=== PATIENT | female | born 1935 | race Caucasian/White ===

== ENCOUNTER → 2016-10-13 | Outpatient (REF) | payer MEDICARE, OTHER ==
[~2016-10-13] MED LIST: /WARF25TA; ACET65TA; AMIT10TA2; AMLO25TA PO; ASPI81TA85 PO; BAYE325T12 PO; BONIVA; CALC600T7 PO; COUM1TAB; CRAN500C2 PO; DIOV320T PO; DIOV80TA; EXTR500C4 PO; FERROUS GLUCONATE; FURO40TA2 PO; HYDR-3719 PO; INDE80CA PO; KEFL500C7 PO; LEVO500T32 PO; LIDODERM PATCH; MECL-68 PO; MECL25TA2; METAMUCIL; MILKSUS; NATU400T PO; NORV5TAB; PRILOSEC; PROP80CA; REST0.05 OU; RESTASIS; SYNT25TA PO; THERGRAN; TRAM50TA2; ULTRTA; VICO5TAB; VITA10006 PO; VITA500055 PO; VITAMIN D50000 UNT; ZOCO40TA; ZOCO40TA PO; prilosec otc; systane OU
[2016-10-13 16:53] LABS: PERCENT SATURATION 24.7 % (13.2-37.4)
== END ==
LOC: M LAB REF 16:11
PROVIDERS: ATTEND Internal Medicine
DX: N18.4 Chronic kidney disease, stage 4 (severe) (principal); D63.1 Anemia in chronic kidney disease

== ENCOUNTER → 2016-11-27 | Outpatient (REF) | payer MEDICARE, OTHER | LOC: M LAB REF 12:58 | PROVIDERS: ATTEND Internal Medicine Nephrology | DX: N39.0 Urinary tract infection, site not specified (principal) ==

== ENCOUNTER → 2017-04-03 | Outpatient (REF) | payer MEDICARE ==
[~2017-04-03] MED LIST changes: +KEFL500C17 PO; -KEFL500C7 PO; +LEVO500T3 PO; -LEVO500T32 PO
== END ==
LOC: M LAB REF 17:14
PROVIDERS: ATTEND Internal Medicine Nephrology
DX: N39.0 Urinary tract infection, site not specified (principal)

== ENCOUNTER 2017-06-18 19:26 | Emergency (ER) | payer MEDICARE ==
[~2017-06-18] VITALS: Ht 157.5 cm; Wt 74.1 kg
[2017-06-18] MEDS ORDERED: SPIR25TA2 PO (19:47)
[2017-06-18] MEDS ORDERED: HYDR-3910 PO (19:47)
[2017-06-18] MEDS ORDERED: ROCA0.25 PO (19:47)
[2017-06-18] MEDS ORDERED: LASI40TA PO (19:47)
[2017-06-18] MEDS ORDERED: MORP15TA2 PO (19:47)
[2017-06-18] MEDS ORDERED: MORP20SO3 PO (19:47)
[2017-06-18] MEDS ORDERED: FISH5CAP PO (19:50)
[2017-06-19] MEDS ORDERED: PERCOCET 5MG/325MG TAB PO ONE (02:30)
--- NOTE | 2017-06-19 03:40 | REPUSA ---
CLINICAL HISTORY: Back pain. TECHNIQUE: Multiple axial CT images were obtained through the lumbar spine without IV contrast adeliai al. COMMENTS: Moderate osteopenia of the visualized bones. Straightening of the lumbar lordosis. Grade 1 anterolisthesis of L4 on L5 measuring 2.4 mm. Moderate chronic compression fracture of L1 vertebral body. The maximum loss of height is estimated at 38%. Mild associated retropulsion. Secondary mild impingement on the corresponding aspect of the thecal sac and subsequent mild narrowin g of the adjacent aspect of the spinal canal. Moderate changes of Baastrup's disease. There are diffuse spondylotic changes. Findings are demonstrated by disc space narrowing, osteophyte formation and degenerative endplate changes. Facet joint arthropathy. No other fracture or dislocatio n is seen. No aggressive bone lesion is noted. Moderate multilevel degenerative disc disease. Multilevel spinal canal stenosis more prominent at L3-L4 and L4-L5 levels. Moderate multilevel degenerative disc disease. IMPRESSION: Spondylosis. No acute pathology. Thank you for your kind referral of this patient.
[2017-06-19] MEDS ORDERED: PERC5TAB12 PO (04:07)
[2017-06-19] MEDS ORDERED: PRED20TA PO (04:07)
[2017-06-19 04:09] VITALS: BP 145/56
[2017-06-19] MEDS ORDERED: predniSONE 20 MG TAB PO ONE (04:15)
[2017-06-19] MEDS ORDERED: OXYCODONE/APAP 5MG/325MG(BULK FOR ED) 1 TABLET PO ONE (04:15)
--- NOTE | 2017-06-19 08:13 | REP ---
Clinical: Pain. Technique: AP and lateral views of the left knee. Findings: The patient is status post arthroplasty with normal appearance and positioning to the femoral and tibial components. No dislocation. No periosteal reaction or significant heterotopic changes. No obvious effusion. Impression: No obvious acute abnormality by radiographic evaluation. Signed by Felipe Valdez MD 06/19/2017 08:05 A
--- NOTE | 2017-06-19 08:19 | REP ---
Clinical: Left hip pain. Technique: Frontal view of the pelvis with neutral and frog lateral views of the left hip. Findings: Enthesopathy and moderate degenerative changes to the pelvis and bilateral hips noted and relatively symmetric. Changes to the hip including increase sclerosis to the acetabular roof with primarily medial joint space. No obvious acute fracture. Sharply demarcated linear lucencies overlying the left pubic symphysis which are somewhat similar to 2015 and may represent irregular gas within the rectum, but subtle fracture cannot be excluded. Clinical correlation is recommended. Impression: 1. Pelvis and hips demonstrate enthesopathy and moderate symmetric degenerative changes without evidence for acute left hip fracture or dislocation. 2. Sharply demarcated lucencies overlie the left pubis symphysis and fracture cannot be excluded. Correlation is required. Signed by Felipe Valdez MD 06/19/2017 08:11 A
--- NOTE | 2017-06-22 06:54 | ED PDOC ---
Post-Departure Follow-Up dr peck faxed formal report of left hip and pelvis xray for fu. reviewing chart. pt relayed info. see chart. Frankie Fried MD Jun 22, 2017 06:54
== END 2017-06-19 04:59 | disposition home or self-care (01) ==
LOC: M ED 19:26
DX: M54.5 Low back pain (principal); M25.552 Pain in left hip

== ENCOUNTER → 2017-06-29 | Outpatient (CLI) | payer MEDICARE ==
[~2017-06-29] MED LIST changes: +FISH5CAP PO; +HYDR-3910 PO; +LASI40TA PO; +MORP15TA2 PO; +MORP20SO3 PO; +PERC5TAB12 PO; +PRED20TA PO; +ROCA0.25 PO; +SPIR25TA2 PO
--- NOTE | 2017-06-29 19:33 | REP ---
HISTORY: Hip pain. COMPARISON: There is degenerative asymmetric hip joint space narrowing with marginal osteophyte formation seen involving the acetabulum, status quo. There is no evidence of an acute fracture or dislocation. There is no CT evidence of a joint effusion. There is a chronic ill-defined inferior medial acetabular defect which is unchanged. IMPRESSION: Stable appearing chronic changes without evidence of an acute fracture or dislocation. If possible obtain MRI to search for marrow edema if clinically relevant. Signed by Lalo Nye DO 06/29/2017 07:41 P
== END ==
LOC: M RAD 18:13
PROVIDERS: ATTEND Orthopaedic Surgery
DX: M16.12 Unilateral primary osteoarthritis, left hip (principal)

== ENCOUNTER 2017-09-12 13:58 | Emergency (ER) | payer MEDICARE ==
[2017-09-12] MEDS: PERCOCET 5MG/325MG TAB PO (16:40)
== END 2017-09-12 16:54 | disposition home or self-care (01) ==
LOC: M ED 13:58
DX: I83.10 Varicose veins of unspecified lower extremity with inflammation (principal); M79.605 Pain in left leg; Z79.82 Long term (current) use of aspirin; Z79.899 Other long term (current) drug therapy; Z88.8 Allergy status to other drugs, medicaments and biological substances; Z88.5 Allergy status to narcotic agent
CPT/HCPCS: 93971

== ENCOUNTER → 2017-11-20 | Outpatient (REF) | payer MEDICARE | LOC: M LAB REF 17:51 | DX: N39.0 Urinary tract infection, site not specified (principal) | CPT/HCPCS: 87186 ==

== ENCOUNTER → 2018-04-25 | Outpatient (CLI) | payer MEDICARE ==
[2018-04-25 20:55] LABS: BASO # 0.1 10^3/uL (0.0-0.2); BASO % 0.5 % (0.0-1.0); EOS # 0.2 10^3/uL (0.0-0.50); HEMATOCRIT 35.6 % (36.0-47.0); HEMOGLOBIN 10.9 g/dl (12.0-15.5); IMMATURE GRANULOCYTE % 0.5 % (0-3.0); LYMPH # 1.8 10^3/uL (1.5-4.5); LYMPH % 19.9 % (24.0-44.0); MEAN CORPUSCULAR HEMOGLOBIN 30.6 pg (27.0-33.0); MEAN CORPUSCULAR HGB CONC 30.6 g/dl (32.0-36.5); MONO % 10.3 % (0.0-5.0); NEUTROPHILS # 6.2 10^3/uL (1.8-7.7); NEUTROPHILS % 66.8 % (36.0-66.0); PLATELET COUNT, AUTOMATED 268 10^3/uL (150-450); RED BLOOD COUNT 3.56 10^6/uL (4.00-5.40); RED CELL DISTRIBUTION WIDTH 12.7 % (11.5-14.5); WHITE BLOOD COUNT 9.2 10^3/uL (4.0-10.0)
[2018-04-25 21:23] LABS: ALBUMIN 3.8 GM/DL (3.2-5.2); ALBUMIN/GLOBULIN RATIO 1.19 (1.00-1.93); ALKALINE PHOSPHATASE 65 U/L (45-117); ALT/SGPT 22 U/L (12-78); AMYLASE 52 U/L (25-115); ANION GAP 11 MEQ/L (8-16); AST/SGOT 11 U/L (7-37); BILIRUBIN,TOTAL 0.6 MG/DL (0.2-1.0); BLOOD UREA NITROGEN 67 MG/DL (7-18); CALCIUM LEVEL 9.7 MG/DL (8.8-10.2); CARBON DIOXIDE LEVEL 29 MEQ/L (21-32); CHLORIDE LEVEL 103 MEQ/L (98-107); CREATININE FOR GFR 2.41 MG/DL (0.55-1.30); GLOMERULAR FILTRATION RATE 20.4 (>32); GLUCOSE, FASTING 105 MG/DL (70-100); LIPASE 94 U/L (73-393); POTASSIUM SERUM 4.7 MEQ/L (3.5-5.1); SODIUM LEVEL 143 MEQ/L (136-145)
[2018-04-26 11:17] LABS: CONTROL LINE HPYORI INT CTR LINE PRESENT; H PYLORI QUALITATIVE IgG NEGATIVE (NEGATIVE)
== END ==
LOC: M WUC 16:10
DX: R63.4 Abnormal weight loss (principal); R53.1 Weakness
CPT/HCPCS: 82150

== ENCOUNTER → 2018-09-20 | Outpatient (CLI) | payer MEDICARE ==
[~2018-09-20] MED LIST changes: +ASPI1TAB15 PO; -INDE80CA PO; +INDE80CA9 PO; -LASI40TA PO; +LASI40TA9 PO; +PERC10TA26 PO; +SPIR-10 PO; -SPIR25TA2 PO
--- NOTE | 2018-09-20 10:04 | REP ---
Clinical: Pain. Technique: AP, lateral, bilateral oblique views of the right ankle. Findings: Marked diffuse soft tissue swelling is appreciated. Underlying age-related changes are suggested without evidence for acute fracture. Ankle mortise appears intact. Impression: Marked diffuse swelling. No obvious acute fracture or dislocation. Electronically Signed by Felipe Valdez MD 09/20/2018 09:55 A
== END ==
LOC: M WUC 09:23
PROVIDERS: ATTEND Physician Assistant
DX: M25.471 Effusion, right ankle (principal); M25.571 Pain in right ankle and joints of right foot

== ENCOUNTER → 2018-10-18 | Outpatient (CLI) | payer MEDICARE ==
--- NOTE | 2018-10-18 15:58 | REP ---
LEFT SHOULDER, THREE VIEWS: Three views of the left shoulder are performed. There is no acute fracture or dislocation. No intrinsic osseous lesion is seen. There is mild spurring at the acromioclavicular joint and glenohumeral joint. IMPRESSION: Mild degenerative changes. Electronically Signed by Roland Mcdonald MD 10/18/2018 04:03 P
--- NOTE | 2018-10-18 16:04 | REP ---
HUMERUS, TWO VIEWS: Two views of the left humerus performed. There is no evidence of acute fracture, dislocation or intrinsic bone disease. There is mild spurring at the margins of the acromioclavicular and glenohumeral joints. IMPRESSION: No abnormality left humerus. Electronically Signed by Roland Mcdonald MD 10/18/2018 04:26 P
== END ==
LOC: M WUC 14:55
PROVIDERS: ATTEND Physician Assistant
DX: M25.512 Pain in left shoulder (principal); R32 Unspecified urinary incontinence; N39.0 Urinary tract infection, site not specified

== ENCOUNTER → 2018-10-18 | Outpatient (REF) | payer MEDICARE | LOC: M LAB REF 15:34 | PROVIDERS: ATTEND Internal Medicine Nephrology | DX: N39.0 Urinary tract infection, site not specified (principal) ==

== ENCOUNTER → 2018-10-18 | Outpatient (CLI) | payer MEDICARE ==
--- NOTE | 2018-10-18 14:11 | REP ---
Clinical: Urinary incontinence. Technique: Real time ryder scale ultrasound examination using curved array transducer. Findings: Bladder is normal in appearance and without wall thickening or mass lesion. Prevoid bladder measures 3.6 x 6.0 x 3.7 cm (52 ml). Postvoid bladder is completely emptied. Impression: Normal bladder ultrasound. Electronically Signed by Felipe Valdez MD 10/18/2018 02:02 P
== END ==
LOC: M RAD 12:48
PROVIDERS: ATTEND Internal Medicine Nephrology
DX: R32 Unspecified urinary incontinence (principal)

== ENCOUNTER → 2018-11-21 | Outpatient (REF) | payer MEDICARE ==
[~2018-11-21] MED LIST changes: -/WARF25TA; +COUM1TAB18
[2018-11-21 15:02] LABS: BACTERIA, URINE AUTO 3+ (NEGATIVE); MUCUS, URINE SMALL (NEGATIVE); RBC, URINE AUTO 8 /HPF (0-3); SQUAMOUS EPITHELIAL CELL UR AU 2 /HPF (0-6); WBC, URINE AUTO TNTC /HPF (0-3)
== END ==
LOC: M LAB REF 13:18
PROVIDERS: ATTEND Internal Medicine Nephrology
DX: N39.0 Urinary tract infection, site not specified (principal); M10.9 Gout, unspecified

== ENCOUNTER → 2018-12-02 | Outpatient (REF) | payer MEDICARE | LOC: M LAB REF 16:37 | PROVIDERS: ATTEND Internal Medicine | DX: N18.4 Chronic kidney disease, stage 4 (severe) (principal) ==

== ENCOUNTER → 2019-03-13 | Outpatient (REF) | payer MEDICARE ==
[~2019-03-13] MED LIST changes: +ACET500T15 PO; +CALC1CAP31 PO; +COLA100C5 PO; +CVS500CA5 PO; +DEPA500T2 PO; +FEBU40TA4 PO; +HYDR-3911 PO; +KP F1200 PO; +LEXA5TAB13 PO; -MECL-68 PO; +MECL1TAB31 PO; +OXYC15TA66 PO; +PROP80CA PO; +SIMV40TA20 PO; +VITA-158 PO; +VITA-245 PO
== END ==
LOC: M LAB REF 13:04
PROVIDERS: ATTEND Internal Medicine Nephrology
DX: N39.0 Urinary tract infection, site not specified (principal)

== ENCOUNTER 2019-05-16 13:32 | Inpatient (IN) | payer MEDICARE ==
[~2019-05-16 13:32] MED LIST changes: -ACET500T15 PO; -CALC1CAP31 PO; -COLA100C5 PO; -CVS500CA5 PO; -DEPA500T2 PO; -FEBU40TA4 PO; -HYDR-3911 PO; -KP F1200 PO; -LEXA5TAB13 PO; +MECL-68 PO; -MECL1TAB31 PO; -OXYC15TA66 PO; -PROP80CA PO; -SIMV40TA20 PO; -VITA-158 PO; -VITA-245 PO
[2019-05-16 13:51] LABS: BASO # 0.1 10^3/uL (0.0-0.2); BASO % 0.7 % (0.0-1.0); EOS # 0.2 10^3/uL (0.0-0.5); EOS % 1.8 % (0.0-3.0); HEMATOCRIT 37.7 % (36.0-47.0); LYMPH # 1.5 10^3/uL (1.5-5.0); LYMPH % 14.7 % (24.0-44.0); MEAN CORPUSCULAR HGB CONC 31.8 g/dl (32.0-36.5); MEAN CORPUSCULAR VOLUME 97.4 fl (80.0-96.0); MONO # 0.9 10^3/uL (0.0-0.8); MONO % 8.2 % (0.0-5.0); NEUTROPHILS # 7.7 10^3/uL (1.5-8.5); NEUTROPHILS % 74.2 % (36.0-66.0); PLATELET COUNT, AUTOMATED 287 10^3/uL (150-450); RED BLOOD COUNT 3.87 10^6/uL (4.00-5.40); WHITE BLOOD COUNT 10.4 10^3/uL (4.0-10.0)
[2019-05-16] MEDS ORDERED: LORazepam 2 MG/ML VIAL (J2060) As Ordered ONE (13:56)
[2019-05-16 14:02] LABS: INR 1.08; PROTHROMBIN TIME 13.7 SECONDS (11.8-14.0)
--- NOTE | 2019-05-16 14:12 | REP ---
CT brain: 05/16/2019. Indication: Stroke. Comparison: 03/20/2015. Technique: Unenhanced axial CT images of the brain were obtained from skull base to vertex. Findings: There is no acute intracranial hemorrhage, acute cortical infarction, mass effect or hydrocephalous. Encephalomalacia and gliosis are noted within the left frontal lobe. Stable. Patchy areas of white matter hypoattenuation are present throughout the subcortical and periventricular white matter. Age-related volume loss is present. Impression: No acute intracranial process. 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 Electronically Signed by Jose Gutiérrez DO 05/16/2019 02:04 P
[2019-05-16 14:15] LABS: ALBUMIN 3.6 GM/DL (3.2-5.2); ALT/SGPT 22 U/L (12-78); BILIRUBIN,DIRECT 0.1 MG/DL (0.0-0.2); BILIRUBIN,TOTAL 0.6 MG/DL (0.2-1.0); BLOOD UREA NITROGEN 56 MG/DL (7-18); CARBON DIOXIDE LEVEL 30 MEQ/L (21-32); CHLORIDE LEVEL 106 MEQ/L (98-107); CK-MB VALUE MASS 1.2 NG/ML (<3.6); CPK CREATINE PHOSPHOKINASE 75 U/L (26-192); CREATININE FOR GFR 1.99 MG/DL (0.55-1.30); GLOMERULAR FILTRATION RATE 25.4 (>32); GLUCOSE, FASTING 112 MG/DL (70-100); SODIUM LEVEL 144 MEQ/L (136-145); TOTAL PROTEIN 6.7 GM/DL (6.4-8.2); TROPONIN I 0.02 NG/ML (< 0.10)
--- NOTE | 2019-05-16 14:28 | REP ---
Single view chest: 05/16/2019. Indication: Stroke. Dyspnea. Comparison: 03/20/2015. Findings: The lungs are clear. Cardiomegaly is redemonstrated. Aortic atherosclerotic disease is present. Sequelae of previous vertebroplasty are again noted. There is no significant pleural effusion or pneumothorax. Impression: Clear lungs. Cardiomegaly. Electronically Signed by Jose Gutiérrez DO 05/16/2019 02:19 P
[2019-05-16] MEDS ORDERED: VALPROATE SOD INJ 750 MG in D5W 50 ML IV ONE (15:45)
[2019-05-16] MEDS ORDERED: SIMV40TA2 PO (15:57)
[2019-05-16] MEDS ORDERED: SYNT25TA PO (15:57)
[2019-05-16] MEDS ORDERED: LEXA5TAB13 PO (15:57)
[2019-05-16] MEDS ORDERED: OXYC15TA66 PO (15:57)
[2019-05-16] MEDS ORDERED: ACET500T15 PO (15:57)
[2019-05-16] MEDS ORDERED: MECL-68 PO (15:57)
[2019-05-16] MEDS ORDERED: PROP80CA PO (15:57)
[2019-05-16] MEDS ORDERED: FURO40TA2 PO (15:57)
[2019-05-16] MEDS ORDERED: CALC1CAP31 PO (15:57)
[2019-05-16] MEDS ORDERED: HYDR-3911 PO (15:57)
[2019-05-16] MEDS ORDERED: FEBU40TA4 PO (15:57)
[2019-05-16] MEDS ORDERED: SPIR-10 PO (15:57)
[2019-05-16] MEDS ORDERED: COLA100C5 PO (15:58)
[2019-05-16] MEDS ORDERED: CVS500CA5 PO (15:58)
[2019-05-16] MEDS ORDERED: REST0.05 OU (15:58)
[2019-05-16] MEDS ORDERED: ASPI81TA85 PO (15:58)
[2019-05-16] MEDS ORDERED: KP F1200 PO (15:58)
[2019-05-16] MEDS ORDERED: VITA-158 PO (15:58)
[2019-05-16] MEDS ORDERED: VITA-245 PO (15:58)
[2019-05-16] MEDS ORDERED: ACETAMINOPHEN TAB 650MG DOSE (2X325MG) PO ONE (16:00)
--- NOTE | 2019-05-16 16:41 | HPEPDOC ---
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 She reported felt unwell this morning and has a headache. Reportedly felt very weak and was taken to the the ER and developed a seizure en route. Noted to be post ictal on first arrival to the ER but now appeared to be back at baseline. She stated that she has been off of her medications for many years now and have been doing well without any problems with seizures. Denies any falls, recent illness, chest pain, SOB, visual changes or any other symptoms apart from headache this morning. Current states that she feels well. PAST MEDICAL HISTORY: Refer to [facility] PAST SURGICAL HISTORY: Bilateral knee replacement Kyphoplasty Hysterectomy Bladder suspension surgery Cataract surgery Laminectomy SOCIAL HISTORY: Denies tobacco, alcohol or illicit drug use. FAMILY HISTORY: Fatherleukemia Motherrenal failure ALLERGIES: Please see below. REVIEW OF SYSTEMS: 10 point review of system negative except as stated in [facility] HOME MEDICATIONS: Please see below. PHYSICAL EXAMINATION: General: No acute distress, Alert, somewhat tremulous and emotional Eyes: Normal sclera, EOMI, OBINNA HENT: Atraumatic, neck supple, moist mucous membranes Cardiovascular: Normal rate, normal rhythm. Pulmonary: Clear to auscultation b/l, no wheezing GI: Soft, nontender, nondistended Skin: Warm and dry Neuro: CN grossly intact. No focal deficits. sensations intact. generalized weakness overall. No visual changes. Psych: oriented x 3 LABORATORY DATA: See below. IMAGING: CT Head- Findings: There is no acute intracranial hemorrhage, acute cortical infarction, mass effect or hydrocephalous. Encephalomalacia and gliosis are noted within the left frontal lobe. Stable. Patchy areas of white matter hypoattenuation are present throughout the subcortical and periventricular white matter. Age-related volume loss is present. Impression: No acute intracranial process. 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 CXR- Impression: Clear lungs. Cardiomegaly. MICROBIOLOGY: Please see below. ASSESSMENT AND PLAN: 1. Seizures - Previous history of subdural hematoma with Seizures but has been off of medication for decades. - No neurological deficits at this time. CT head showed no acute changes apart from baseline prior changes. - c/w Seizure precautions. - Loaded with Depakote, c/w 250 mg PO qHS and titrate up to 500 mg qhs in several weeks. - Will benefit from overnight observation at this time. - Will need neuro f/u post discharge. 2. Hypothyroidism - c/w Synthroid. 3. HTN - Resume home med. 4. CKD 3/4? - Cr 1.9, unsure of patient's baseline. Was higher at last admission in 2018. 5. Spinal stenosis - Pain control Code status: Full code Dispo: Home once stable. PT eval Vital Signs Vital Signs Date Time Temp Pulse Resp B/P (MAP) Pulse Ox O2 Delivery O2 Flow Rate FiO2 05/16/19 14:02 55 95 05/16/19 14:00 180/77 (111) 05/16/19 13:43 97.4 20 Room Air Laboratory Data Labs 24H Laboratory Tests 2 05/16/19 13:41: Immature Granulocyte % (Auto) 0.4, Neutrophils (%) (Auto) 74.2H, Lymphocytes (%) (Auto) 14.7L, Monocytes (%) (Auto) 8.2H, Eosinophils (%) (Auto) 1.8, Basophils (%) (Auto) 0.7, Neutrophils # (Auto) 7.7, Lymphocytes # (Auto) 1.5, Monocytes # (Auto) 0.9H, Eosinophils # (Auto) 0.2, Basophils # (Auto) 0.1, Nucleated Red Blood Cells % (auto) 0.0, Prothrombin Time 13.7, Prothromb Time International Ratio 1.08, Activated Partial Thromboplast Time 37.0, Anion Gap 8, Glomerular Filtration Rate 25.4L, Calcium Level 10.0, Total Bilirubin 0.6, Direct Bilirubin 0.1, Aspartate Amino Transf (AST/SGOT) 17, Alanine Aminotransferase (ALT/SGPT) 22, Alkaline Phosphatase 76, Total Creatine Kinase 75, Creatine Kinase MB 1.2, Creatine Kinase MB Relative Index 1.60, Troponin I 0.02, Total Protein 6.7, Albumin 3.6, Albumin/Globulin Ratio 1.16 05/16/19 16:07: Urine Color STRAW, Urine Appearance CLEAR, Urine pH 7.0, Urine Specific [place] 1.005, Urine Protein NEGATIVE, Urine Glucose (UA) NEGATIVE, Urine Ketones NEGATIVE, Urine Blood NEGATIVE, Urine Nitrite NEGATIVE, Urine Bilirubin NEGATI VE, Urine Urobilinogen 0.2, Urine Leukocyte Esterase NEGATIVE, Urine WBC (Auto) 0, Urine RBC (Auto) 2, Urine Hyaline Casts (Auto) 0, Urine Bacteria (Auto) NEGATIVE, Urine Squamous Epithelial Cells 0, Urine Sperm (Auto) CBC/BMP Laboratory Tests 05/16/19 13:41 Home Medications Scheduled Ascorbic Acid (Vitamin C) 500 Mg Tablet, 1,000 MG PO DAILY Aspirin (Aspir 81) 81 Mg Tablet.dr, 81 MG PO BID Calcitriol (Calcitriol) 0.25 Mcg Capsule, 0.25 MCG PO QHS Cranberry Fruit Extract (Cranberry) 500 Mg Capsule, 1,000 MG PO DAILY Cyclosporine (Restasis) 0.05% Droperette, 1 DROP OU TID Docusate Sodium (Colace) 100 Mg Capsule, 300 MG PO QHS Escitalopram Oxalate (Lexapro) 5 Mg Tablet, 5 MG PO DAILY Febuxostat (Uloric) 40 Mg Tablet, 40 MG PO DAILY Fish Oil/Dha/Epa (Fish Oil 1,200 mg Fish Oil) 1 Each Capsule, 1,200 MG PO BID Furosemide (Furosemide) 40 Mg Tablet, 40 MG PO DAILY Hydralazine HCl (Hydralazine HCl) 50 Mg Tablet, 50 MG PO BID Levothyroxine Sodium (Synthroid) 25 Mcg Tablet, 25 MCG PO DAILY Meclizine HCl (Meclizine HCl) 25 Mg Tablet, 25 MG PO BID Oxycodone HCl (Oxycontin) 15 Mg Tab.er.12h, 15 MG PO BID Propranolol HCl (Propranolol HCl ER) 80 Mg Cap.sa.24h, 80 MG PO QHS Simvastatin (Simvastatin) 40 Mg Tablet, 40 MG PO QHS Spironolactone (Spironolactone) 25 Mg Tablet, 25 MG PO DAILY Vitamin E (Vitamin E) 400 Unit Capsule, 400 UNIT PO DAILY Scheduled PRN Acetaminophen (Acetaminophen) 500 Mg Tablet, 500 MG PO Q6H PRN for PAIN Allergies Coded Allergies: amlodipine (Verified Allergy, Unknown, UNKNOWN REACTION, 05/16/19) codeine (Verified Adverse Reaction, Unknown, NAUSEA, 05/16/19) meperidine (Verified Adverse Reaction, Unknown, HALLUCINATIONS, 05/16/19) propoxyphene (Verified Adverse Reaction, Unknown, HALLUCINATIONS, 05/16/19) A-FIB/CHADSVASC A-FIB History Current/History of A-Fib/PAF?: No CLAUDY MANNING MD May 16, 2019 16:41
[2019-05-16] MEDS: LEVOTHYROXINE 25MCG TABLET (0.025MG) PO SCH (17:34)
[2019-05-16 20:40] LABS: C REACTIVE PROTEIN QUANTITATIV < 0.30 MG/DL (0.00-0.30)
[2019-05-16] MEDS ORDERED: DIVALPROEX 250 MG TAB PO SCH (21:00)
--- NOTE | 2019-05-16 21:23 | REPVR ---
PROCEDURE INFORMATION: Exam: MR Cervical Spine Without Contrast Exam date and time: 05/16/2019 8:51 PM Clinical history: 83 years old, female; Neck pain; Additional info: Headaches, neck pain, seizure TECHNIQUE: Imaging protocol: Multiplanar magnetic resonance images of the cervical spine without intravenous contrast. COMPARISON: No relevant prior studies available. FINDINGS: Patient motion. Mild chronic loss of height involving T1 and T2. Remainder demonstrates preserved height and AP alignment. Multilevel disc desiccation. No evidence of discitis/osteomyelitis. No definite abnormal cord signal or cord expansion. No epidural fluid collection. C2-C3: No significant central or foraminal stenosis. C3-C4: Right-sided uncinate spurring and facet joint arthropathy causes mild right-sided foraminal stenosis. No central canal stenosis. C4-C5: Mild disc osteophyte complex with mild right-sided uncinate spurring. No significant canal stenosis. There is mild right foraminal stenosis. C5-C6: Mild disc osteophyte complex without significant central or foraminal stenosis. C6-C7: Mild disc osteophyte complex without significant central or foraminal stenosis. C7-T1: No significant central or foraminal stenosis. IMPRESSION: 1. Patient motion without definite acute abnormality. 2. Mild for age degenerative change without significant central canal compromise. Electronically signed by: Ceasar Pardo On 05/16/2019 21:22:58 PM
[2019-05-16 21:25] VITALS: BP 152/60
--- NOTE | 2019-05-16 21:28 | REPVR ---
PROCEDURE INFORMATION: Exam: MR Head Without Contrast Exam date and time: 05/16/2019 8:51 PM Clinical history: 83 years old, female; Other: Weakness and siezure; Additional info: Headaches, neck pain, seizure TECHNIQUE: Imaging protocol: MR of the head without contrast. COMPARISON: MRI-Brain without Contrast 03/22/2015 11:18 AM FINDINGS: Age related volume loss. Major vascular flow voids at the skull base are preserved. No extra-axial fluid collection. No midline shift or intracranial mass effect. There is left frontal lobe encephalomalacia. Nonspecific white matter gliosis, probable chronic microvascular ischemia. No diffusion restriction. Mild scattered paranasal sinus disease. Small left-sided mastoid effusion. IMPRESSION: No acute intracranial abnormality. Electronically signed by: Ceasar Pardo On 05/16/2019 21:28:30 PM
--- NOTE | 2019-05-16 21:31 | ECGEPIP ---
[facility] - ED Test Date: 2019-05-16 Pat Name: HARI ORTA Department: Room: - Gender: Female Fraud Analyst: tuan : 1935 Requested By: NANCY Geller Order Number: [id number] Reading MD: Tabitha Castillo Measurements Intervals [place] Rate: 57 P: 64 IA: 168 QRS: 21 QRSD: 108 T: 66 QT: 457 QTc: 447 Interpretive Statements SINUS BRADYCARDIA POSSIBLE ANTERIOR MYOCARDIAL INFARCTION, OF INDETERMINATE AGE LOW VOLTAGE LIMB NSTTW abnormalities NO PRIOR Electronically Signed on 05-16-2019 21:31:42 EDT by Tabitha Castillo
[2019-05-16 21:51] LABS: ERYTHROCYTE SEDIMENTATION RATE 24 mm/hr (0-30)
[2019-05-16] MEDS: ASPIRIN 81 MG ENTERIC TAB PO SCH (22:48)
[2019-05-16] MEDS: oxyCODONE 15 MG CR TAB PO SCH (22:48)
[2019-05-16] MEDS: **hydrALAZINE** 50 MG TAB PO SCH (22:49)
[2019-05-16] MEDS: SIMVASTATIN 40 MG TAB PO SCH (22:49)
[2019-05-16] MEDS: PROPRANOLOL 80 MG LA CAP PO SCH (22:49)
[2019-05-16] MEDS: CALCITRIOL 0.25 MCG CAP (S0169) PO SCH (22:50)
[2019-05-16] MEDS: DOCUSATE SODIUM 100 MG CAP PO SCH (22:50)
[2019-05-16] MEDS: MECLIZINE 25 MG TABLET PO SCH (22:50)
[2019-05-16] MEDS: DIVALPROEX 500MG *ER* TAB PO SCH (22:50)
[2019-05-17] VITALS (10 sets, daily range): BP systolic 100–154; BP diastolic 38–67
[2019-05-17] MEDS: LEVOTHYROXINE 25MCG TABLET (0.025MG) PO SCH (05:08)
[2019-05-17 06:01] LABS: HEMATOCRIT 32.3 % (36.0-47.0); HEMOGLOBIN 10.3 g/dl (12.0-15.5); MEAN CORPUSCULAR HEMOGLOBIN 31.1 pg (27.0-33.0); MEAN CORPUSCULAR HGB CONC 31.9 g/dl (32.0-36.5); MEAN CORPUSCULAR VOLUME 97.6 fl (80.0-96.0); PLATELET COUNT, AUTOMATED 236 10^3/uL (150-450); RED BLOOD COUNT 3.31 10^6/uL (4.00-5.40)
[2019-05-17 06:27] LABS: CALCIUM LEVEL 9.1 MG/DL (8.8-10.2); CREATININE FOR GFR 2.18 MG/DL (0.55-1.30); GLOMERULAR FILTRATION RATE 22.8 (>32); POTASSIUM SERUM 3.6 MEQ/L (3.5-5.1)
[2019-05-17] MEDS: **hydrALAZINE** 50 MG TAB PO SCH ×2 (08:49→20:52)
[2019-05-17] MEDS: MECLIZINE 25 MG TABLET PO SCH ×2 (08:49→20:52)
[2019-05-17] MEDS: SPIRONOLACTONE 25 MG TAB PO SCH (08:50)
[2019-05-17] MEDS: ASPIRIN 81 MG ENTERIC TAB PO SCH ×2 (08:50→20:52)
[2019-05-17] MEDS: oxyCODONE 15 MG CR TAB PO SCH ×2 (08:50→21:00)
[2019-05-17] MEDS: ESCITALOPRAM OXALATE 5MG TABLET (LEXAPRO) PO SCH (08:50)
[2019-05-17] MEDS: FEBUXOSTAT 40 MG TABLET (ULORIC) PO SCH (08:50)
[2019-05-17] MEDS: FUROSEMIDE 40 MG TAB PO SCH (08:50)
[2019-05-17] MEDS ORDERED: LEVOTHYROXINE 25MCG TABLET (0.025MG) PO SCH (09:00)
[2019-05-17] MEDS: NS 1,000 ML IV SCH ×2 (09:26→22:39)
--- NOTE | 2019-05-17 10:24 | CR ---
DATE OF CONSULTATION: 05/16/2019 REFERRING PHYSICIAN: Dr. Gary Brown REASON FOR CONSULTATION: Headache and seizure. 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 The patient did not feel well when she woke up this morning. She had a 10/10 headache in occipital head region and all over her head. She felt nausea. She felt tremor of her hands. Family called 911. She reportedly had a generalized seizure in the ambulance. She was postictal upon her arrival in the emergency department. She used to take Dilantin and phenobarbital in past and has been off her medications for many years. She started taking Lexapro a month ago for depression. She has history of chronic back pain for which she goes to pain clinic for injections. This morning she was feeling neck pain as well. She denies dysphagia, dysarthria, diplopia, urinary incontinence. After her traumatic left frontal subdural hemorrhage, she was paralyzed on the right side for weeks. She had physical therapy. She was left with no deficit. PAST MEDICAL HISTORY: Traumatic left frontal cerebral hemorrhage. Hypertension. Dyslipidemia. Chronic back pain due to spinal stenosis. Chronic kidney disease stage III-IV. History of seizures. Depression. Bilateral knee replacements. Hysterectomy. Cataract surgery. Laminectomy of spine. Bladder suspension surgery. Cataract surgery. Kyphoplasty. SOCIAL HISTORY: She denies smoking, alcohol or illicit drugs. FAMILY HISTORY: Father had leukemia and mother had kidney disease. ALLERGIES: 1. AMLODIPINE. 2. CODEINE. 3. DEMEROL. 4. PROPOXYPHENE. HOME MEDICATIONS: - aspirin 81 mg by mouth twice a day - ascorbic acid 1000 mg by mouth daily - Lexapro 5 mg by mouth daily - fish oil 100 mg by mouth twice a day - hydralazine 50 mg by mouth twice a day - levothyroxine 25 mcg by mouth daily - meclizine 25 mg by mouth twice a day as needed - Percocet/OxyContin 15 mg by mouth twice a day - propranolol extended-release 80 mg by mouth daily - simvastatin 40 mg by mouth daily - spironolactone 25 mg by mouth daily - vitamin E 400 mg by mouth daily - Colace 100 mg by mouth daily - calcitriol 0.25 mcg by mouth daily - cyclosporin eye drops both eyes three times a day REVIEW OF SYSTEMS: All systems were reviewed and found to be noncontributory except as mentioned in history of present illness. PHYSICAL EXAMINATION: Temperature 97.4, pulse 55, respiratory rate 20, blood pressure 180/77, 95% saturation on room air. Heart: Regular rate and rhythm. Lungs: Clear to auscultation. Abdomen: Soft, nontender, nondistended. No pedal edema. No musculoskeletal abnormalities. No rash. No signs of meningeal irritation. The patient is awake, alert and oriented to place, person and time. Normal speech comprehension and repetition. Extraoral muscles are intact. No facial weakness. Tongue and uvula are midline. No nystagmus. Visual sanz are full to confrontation. She is hard of hearing. 5/5 strength in all four extremities. Deep tendon flexes are 1+ throughout. Normal sensation throughout. Gait could not be tested. DIAGNOSTIC STUDIES: CT scan of head showed left frontal old cerebral hemorrhage and encephalomalacia. Metabolic profile showed creatinine around 2. WBCs 10.4, platelet count 287 and hemoglobin 12. ASSESSMENT: 1. Generalized seizure due to history of old left frontal traumatic cerebral hemorrhage. 2. 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 3. Headache and neck pain, possibly as prodrome and postictal headache. PLAN: 1. MRI brain and cervical spine. 2. Check ESR and CRP. 3. The patient was loaded Depacon 750 mg once in the emergency department and will start her on Depakote extended-release 500 mg by mouth at bedtime. We are using Depakote as it to work well with her chronic kidney disease. Will watch for worsening of her hand tremor. 4. Physical and occupational therapy. 5. She will followup with pain clinic for her chronic back pain. She is on OxyContin 15 mg by mouth twice a day.
[2019-05-17] MEDS ORDERED: ONDANSETRON 4MG/2ML VIAL (J2405) As Ordered ONE (11:09)
[2019-05-17] MEDS ORDERED: ONDANSETRON 4MG/2ML VIAL (J2405) IV PRN (11:30)
--- NOTE | 2019-05-17 12:16 | IPNPDOC ---
Date Seen The patient was seen on 05/17/19. Progress Note SUBJECTIVE: Patient reported feeling well this morning but vomited up some milk after br eakfast. Reported headache and neck pain, no stiffness. Mild leukocytosis resolved. WBC 10.4->8.0, Afebrile overnight. Cr 1.99->2.18 today, started on IVF. OBJECTIVE PHYSICAL EXAMINATION: VITAL SIGNS: Please see below. General: No acute distress, Alert Eyes: Normal sclera, EOMI HENT: Atraumatic, neck supple Cardiovascular: Normal rate, normal rhythm. Pulmonary: Clear to auscultation b/l, no wheezing GI: Soft, nontender, nondistended Skin: Warm and dry Neuro: CN grossly intact. No focal deficits. sensations intact. generalized weakness overall. No visual changes. Psych: oriented x 3 LABORATORY DATA, IMAGING STUDIES, MICROBIOLOGY: Please see below. DVT prophylaxis ordered?: HSQ ASSESSMENT AND PLAN: 1. Seizures - Previous history of subdural hematoma with Seizures but has been off of medication for decades. - No neurological deficits at this time. CT head showed no acute changes apart from baseline prior changes. - c/w Seizure precautions. - Loaded with Depakote, c/w 250 mg PO qHS and titrate up to 500 mg qhs in several weeks. - Neurology evaluation appreciated. CRP and ESR WNL, no clear evidence of infection at this time. - Brain and cervical spine MRI showed no acute abnormalities. 2. Hypothyroidism - c/w Synthroid. 3. HTN - Resume home med. 4. CKD 3/4? - Cr 1.9, unsure of patient's baseline. Was higher at last admission in 2018. 5. Spinal stenosis - Pain control Code status: Full code Dispo: Will keep patient today for IVF and continue monitoring of BP/mental status. VS, I&O, 24H, Fishbone Vital Signs/I&O Vital Signs Date Time Temp Pulse Resp B/P (MAP) Pulse Ox O2 Delivery O2 Flow Rate FiO2 05/17/19 11:40 104/40 (61) 05/17/19 08:50 98.0 60 18 95 Room Air I&O- Last 24 Hours up to 6 AM 05/17/19 06:00 Intake Total 57.5 ml Output Total 450 ml Balance -392.5 ml Laboratory Data 24H LABS Laboratory Tests 2 05/16/19 13:41: Immature Granulocyte % (Auto) 0.4, Neutrophils (%) (Auto) 74.2H, Lymphocytes (%) (Auto) 14.7L, Monocytes (%) (Auto) 8.2H, Eosinophils (%) (Auto) 1.8, Basophils (%) (Auto) 0.7, Neutrophils # (Auto) 7.7, Lymphocytes # (Auto) 1.5, Monocytes # (Auto) 0.9H, Eosinophils # (Auto) 0.2, Basophils # (Auto) 0.1, Nucleated Red Blood Cells % (auto) 0.0, Erythrocyte Sedimentation Rate 24, Prothrombin Time 13.7, Prothromb Time International Ratio 1.08, Activated Partial Thromboplast Time 37.0, Anion Gap 8, Glomerular Filtration Rate 25.4L, Calcium Level 10.0, Total Bilirubin 0.6, Direct Bilirubin 0.1, Aspartate Amino Transf (AST/SGOT) 17, Alanine Aminotransferase (ALT/SGPT) 22, Alkaline Phosphatase 76, Total Creatine Kinase 75, Creatine Kinase MB 1.2, Creatine Kinase MB Relative Index 1.60, Troponin I 0.02, C-Reactive Protein, Quantitative < 0.30, Total Protein 6.7, Albumin 3.6, Albumin/Globulin Ratio 1.16 05/16/19 16:07: Urine Color STRAW, Urine Appearance CLEAR, Urine pH 7.0, Urine Specific [place] 1.005, Urine Protein NEGATIVE, Urine Glucose (UA) NEGATIVE, Urine Ketones NEGATIVE, Urine Blood NEGATIVE, Urine Nitrite NEGATIVE, Urine Bilirubin NEGATIVE, Urine Urobilinogen 0.2, Urine Leukocyte Esterase NEGATIVE, Urine WBC (Auto) 0, Urine RBC (Auto) 2, Urine Hyaline Casts (Auto) 0, Urine Bacteria (Auto) NEGATIVE, Urine Squamous Epithelial Cells 0, Urine Sperm (Auto) 05/17/19 05:31: Nucleated Red Blood Cells % (auto) 0.0, Anion Gap 9, Glomerular Filtration Rate 22.8L, Calcium Level 9.1 CBC/BMP Laboratory Tests 05/16/19 13:41 05/17/19 05:31 CLAUDY MANNING MD May 17, 2019 12:16
[2019-05-17] MEDS: HEPARIN SOD (PORCINE) 5000 UNITS/ML VIAL SQ SCH ×2 (17:19→20:53)
[2019-05-17] MEDS: SIMVASTATIN 40 MG TAB PO SCH (20:51)
[2019-05-17] MEDS: PROPRANOLOL 80 MG LA CAP PO SCH (20:52)
[2019-05-17] MEDS: DIVALPROEX 500MG *ER* TAB PO SCH (20:52)
[2019-05-17] MEDS: DOCUSATE SODIUM 100 MG CAP PO SCH (20:52)
[2019-05-17] MEDS: CALCITRIOL 0.25 MCG CAP (S0169) PO SCH (20:53)
[2019-05-18] VITALS: BP 146/67
[2019-05-18 04:00] VITALS: BP 163/69
[2019-05-18] MEDS: LEVOTHYROXINE 25MCG TABLET (0.025MG) PO SCH (05:27)
[2019-05-18] MEDS: HEPARIN SOD (PORCINE) 5000 UNITS/ML VIAL SQ SCH ×3 (05:28→20:57)
[2019-05-18 08:00] VITALS: BP 133/64
[2019-05-18] MEDS: ESCITALOPRAM OXALATE 5MG TABLET (LEXAPRO) PO SCH (08:56)
[2019-05-18] MEDS: FUROSEMIDE 40 MG TAB PO SCH (08:57)
[2019-05-18] MEDS: SPIRONOLACTONE 25 MG TAB PO SCH (08:57)
[2019-05-18] MEDS: oxyCODONE 15 MG CR TAB PO SCH ×2 (08:57→21:00)
[2019-05-18] MEDS: ASPIRIN 81 MG ENTERIC TAB PO SCH ×2 (08:57→20:56)
[2019-05-18] MEDS: FEBUXOSTAT 40 MG TABLET (ULORIC) PO SCH (08:57)
[2019-05-18] MEDS: **hydrALAZINE** 50 MG TAB PO SCH ×2 (08:57→20:56)
[2019-05-18] MEDS: MECLIZINE 25 MG TABLET PO SCH ×2 (08:58→20:56)
[2019-05-18 09:36] LABS: CALCIUM LEVEL 8.9 MG/DL (8.8-10.2); CREATININE FOR GFR 2.09 MG/DL (0.55-1.30); POTASSIUM SERUM 3.7 MEQ/L (3.5-5.1)
[2019-05-18 11:11] LABS: INFLUENZA A AMPLIFICATION NEGATIVE (NEGATIVE); INFLUENZA B AMPLIFICATION NEGATIVE (NEGATIVE)
[2019-05-18 12:00] VITALS: BP 134/57
--- NOTE | 2019-05-18 12:45 | IPNPDOC ---
Date Seen The patient was seen on 05/18/19. Progress Note SUBJECTIVE: 83-year-old female with past medical history of chronic kidney disease, traumatic cerebral hemorrhage, subsequent seizures, hypertension, was admitted for seizure. She was not taking seizure medication for the past 20 years, started on Depakote during this hospitalization, no further seizure activity since then. Patient has been evaluated by neurology, imaging has been negative for any acute process, no other intervention, outpatient neurology follow-up. Patient reports feeling well today, denies any dizziness, headache, nausea, vomiting, chest pain, abdominal pain, diarrhea or constipation. Patient, however physical therapy will recommend further therapy sessions prior to d ischarge. 10 point review of systems negative except for above PHYSICAL EXAMINATION: VITAL SIGNS: Please see below. GENERAL: No distress, frail HEENT: Normocephalic, atraumatic, moist mucous membranes NECK: Supple CARDIOVASCULAR EXAMINATION: S1, S2, no murmurs RESPIRATORY EXAMINATION: Clear to auscultation, no wheezing ABDOMINAL EXAMINATION: Soft, nontender, nondistended, positive bowel sounds EXTREMITIES: Range of motion intact SKIN: No rash NEUROLOGICAL EXAMINATION: Alert and oriented 3, no focal deficits PSYCHIATRIC EXAMINATION: Calm and cooperative LABORATORY DATA, IMAGING STUDIES, MICROBIOLOGY: Please see below. DVT prophylaxis ordered?: Yes ASSESSMENT AND PLAN: 83-year-old female with history of traumatic cerebral hemorrhage and seizure disorder, off medication for over 20 years, admitted for seizure. PROBLEMS: 1. Seizure: History of traumatic cerebral hemorrhage, last seizure over 20 years ago. Continue Depakote, evaluated by neurology, imaging negative for acute process. United with physical therapy, recommend further PT sessions prior to discharge. 2. Chronic kidney disease: Creatinine close to baseline, will monitor. 3. Hypertension: Continue home meds. 4. Gout: Continue Uloric DVT prophylaxis: Heparin subcutaneous GI prophylaxis: Not needed VS, I&O, 24H, Fishbone Vital Signs/I&O Vital Signs Date Time Temp Pulse Resp B/P (MAP) Pulse Ox O2 Delivery O2 Flow Rate FiO2 05/18/19 08:57 20 05/18/19 08:57 133/64 05/18/19 08:00 99.3 61 93 Room Air I&O- Last 24 Hours up to 6 AM 05/18/19 06:00 Intake Total 1897.5 ml Output Total 400 ml Balance 1497.5 ml Laboratory Data 24H LABS Laboratory Tests 2 05/18/19 08:49: Anion Gap 8, Glomerular Filtration Rate 24.0L, Calcium Level 8.9 05/18/19 10:31: Influenza Type A (RT-PCR) NEGATIVE, Influenza Type B (RT-PCR) NEGATIVE CBC/BMP Laboratory Tests 05/18/19 08:49 JARROD CAMACHO MD May 18, 2019 12:45
[2019-05-18 16:00] VITALS: BP 148/64
[2019-05-18 20:00] VITALS: BP 145/64
[2019-05-18] MEDS: DOCUSATE SODIUM 100 MG CAP PO SCH (20:55)
[2019-05-18] MEDS: PROPRANOLOL 80 MG LA CAP PO SCH (20:56)
[2019-05-18] MEDS: DIVALPROEX 500MG *ER* TAB PO SCH (20:56)
[2019-05-18] MEDS: CALCITRIOL 0.25 MCG CAP (S0169) PO SCH (20:56)
[2019-05-18] MEDS: SIMVASTATIN 40 MG TAB PO SCH (20:56)
[2019-05-19] VITALS (7 sets, daily range): BP systolic 135–158; BP diastolic 50–70
[2019-05-19 05:28] LABS: HEMATOCRIT 31.4 % (36.0-47.0); HEMOGLOBIN 9.7 g/dl (12.0-15.5); MEAN CORPUSCULAR HEMOGLOBIN 30.8 pg (27.0-33.0); MEAN CORPUSCULAR HGB CONC 30.9 g/dl (32.0-36.5); MEAN CORPUSCULAR VOLUME 99.7 fl (80.0-96.0); PLATELET COUNT, AUTOMATED 206 10^3/uL (150-450); RED BLOOD COUNT 3.15 10^6/uL (4.00-5.40); WHITE BLOOD COUNT 8.1 10^3/uL (4.0-10.0)
[2019-05-19] MEDS: HEPARIN SOD (PORCINE) 5000 UNITS/ML VIAL SQ SCH ×3 (05:55→23:05)
[2019-05-19] MEDS: LEVOTHYROXINE 25MCG TABLET (0.025MG) PO SCH (05:55)
[2019-05-19 06:01] LABS: BILIRUBIN,TOTAL 0.5 MG/DL (0.2-1.0); CALCIUM LEVEL 8.6 MG/DL (8.8-10.2); CREATININE FOR GFR 2.11 MG/DL (0.55-1.30); GLOMERULAR FILTRATION RATE 23.7 (>32); MAGNESIUM LEVEL 1.7 MG/DL (1.8-2.4); POTASSIUM SERUM 3.7 MEQ/L (3.5-5.1); TOTAL PROTEIN 5.4 GM/DL (6.4-8.2)
[2019-05-19 06:03] LABS: ALBUMIN 2.7 GM/DL (3.2-5.2)
[2019-05-19] MEDS ORDERED: POTASSIUM CHLORIDE 10 MEQ SR TABLET PO ONE (08:15)
[2019-05-19] MEDS: FUROSEMIDE 40 MG TAB PO SCH (09:03)
[2019-05-19] MEDS: **hydrALAZINE** 50 MG TAB PO SCH ×2 (09:03→21:27)
[2019-05-19] MEDS: MECLIZINE 25 MG TABLET PO SCH ×2 (09:03→21:26)
[2019-05-19] MEDS: FEBUXOSTAT 40 MG TABLET (ULORIC) PO SCH (09:04)
[2019-05-19] MEDS: ASPIRIN 81 MG ENTERIC TAB PO SCH ×2 (09:04→21:27)
[2019-05-19] MEDS: SPIRONOLACTONE 25 MG TAB PO SCH (09:04)
[2019-05-19] MEDS: oxyCODONE 15 MG CR TAB PO SCH ×2 (09:04→21:26)
[2019-05-19] MEDS: ESCITALOPRAM OXALATE 5MG TABLET (LEXAPRO) PO SCH (09:04)
[2019-05-19] MEDS: MAG SULF 1GM/100ML (MAG RUN) 1 GM in IV 1 EA IV SCH ×2 (09:05→11:21)
[2019-05-19] MEDS ORDERED: SLF 3 ML SYR IV PRN (12:00)
[2019-05-19 13:40] LABS: URIC ACID 4.1 MG/DL (2.6-6.0)
--- NOTE | 2019-05-19 14:02 | IPNPDOC ---
Date Seen The patient was seen on 05/19/19. Progress Note SUBJECTIVE: 83-year-old female with past medical history of chronic kidney disease, traumatic cerebral hemorrhage, subsequent seizures, hypertension, was admitted for seizure. She was not taking seizure medication for the past 20 years, started on Depakote during this hospitalization, no further seizure activity since then. Patient has been evaluated by neurology, imaging has been negative for any acute process, no other intervention, outpatient neurology follow-up. Patient reports feeling well today, denies any dizziness, headache, nausea, vomiting, chest pain, abdominal pain, diarrhea or constipation. Patient, however physical therapy will recommend further therapy sessions prior to d ischarge. 05/19/2019 Patient sitting in chair, reports waking up with right foot pain, moderate to severe when weightbearing, unable to work well with physical therapy due to foot pain. Patient has no other complaints at this time, denies short of breath, chest pain, nausea, vomiting, abdominal pain, diarrhea. 10 point review of systems negative except for above PHYSICAL EXAMINATION: VITAL SIGNS: Please see below. GENERAL: No distress, frail HEENT: Normocephalic, atraumatic, moist mucous membranes NECK: Supple CARDIOVASCULAR EXAMINATION: S1, S2, no murmurs RESPIRATORY EXAMINATION: Clear to auscultation, no wheezing ABDOMINAL EXAMINATION: Soft, nontender, nondistended, positive bowel sounds EXTREMITIES: Right foot with moderate point tenderness of the plantar fascia. 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 DVT prophylaxis ordered?: Yes ASSESSMENT AND PLAN: 83-year-old female with history of traumatic cerebral hemorrhage and seizure disorder, off medication for over 20 years, admitted for seizure. PROBLEMS: 1. Seizure: History of traumatic cerebral hemorrhage, last seizure over 20 years ago. Continue Depakote, evaluated by neurology, imaging negative for acute process. Continue PT 2. Chronic kidney disease: Creatinine close to baseline, will monitor. 3. Hypertension: Continue home meds. 4. Gout: Foot pain, questionable gout flare, Colchicine 1.2 mg 1, start prednisone 30 mg daily. Continue Uloric DVT prophylaxis: Heparin subcutaneous GI prophylaxis: Not needed VS, I&O, 24H, Fishbone Vital Signs/I&O Vital Signs Date Time Temp Pulse Resp B/P (MAP) Pulse Ox O2 Delivery O2 Flow Rate FiO2 05/19/19 12:00 97.4 57 18 147/70 (95) 96 Room Air I&O- Last 24 Hours up to 6 AM 05/19/19 06:00 Intake Total 1215 ml Output Total 2000 ml Balance -785 ml Laboratory Data 24H LABS Laboratory Tests 2 05/19/19 05:01: Nucleated Red Blood Cells % (auto) 0.0, Anion Gap 8, Glomerular Filtration Rate 23.7L, Calcium Level 8.6L, Phosphorus Level 4.0, Magnesium Level 1.7L, Total Bilirubin 0.5, Aspartate Amino Transf (AST/SGOT) 9, Alanine Aminotransferase (ALT/SGPT) 15, Alkaline Phosphatase 50, Total Protein 5.4L, Albumin 2.7#L, Albumin/Globulin Ratio 1.00 CBC/BMP Laboratory Tests 05/19/19 05:01 JARROD CAMACHO MD May 19, 2019 14:02
[2019-05-19] MEDS: SLF 3 ML SYR IV SCH ×2 (14:34→21:28)
[2019-05-19] MEDS ORDERED: COLCHICINE 0.6 MG TAB PO ONE (15:30)
[2019-05-19] MEDS: predniSONE 10 MG TAB PO SCH (16:07)
[2019-05-19] MEDS: CALCITRIOL 0.25 MCG CAP (S0169) PO SCH (21:24)
[2019-05-19] MEDS: PROPRANOLOL 80 MG LA CAP PO SCH (21:25)
[2019-05-19] MEDS: DOCUSATE SODIUM 100 MG CAP PO SCH (21:27)
[2019-05-19] MEDS: SIMVASTATIN 40 MG TAB PO SCH (21:27)
[2019-05-19] MEDS: DIVALPROEX 500MG *ER* TAB PO SCH (21:28)
[2019-05-20] VITALS (7 sets, daily range): BP systolic 131–156; BP diastolic 41–68
[2019-05-20] MEDS: SLF 3 ML SYR IV SCH ×3 (05:58→21:57)
[2019-05-20] MEDS: HEPARIN SOD (PORCINE) 5000 UNITS/ML VIAL SQ SCH ×3 (05:58→21:57)
[2019-05-20] MEDS: LEVOTHYROXINE 25MCG TABLET (0.025MG) PO SCH (05:58)
[2019-05-20 06:12] LABS: HEMATOCRIT 33.5 % (36.0-47.0); HEMOGLOBIN 10.6 g/dl (12.0-15.5); MEAN CORPUSCULAR HEMOGLOBIN 30.9 pg (27.0-33.0); MEAN CORPUSCULAR HGB CONC 31.6 g/dl (32.0-36.5); MEAN CORPUSCULAR VOLUME 97.7 fl (80.0-96.0); PLATELET COUNT, AUTOMATED 226 10^3/uL (150-450); RED BLOOD COUNT 3.43 10^6/uL (4.00-5.40); WHITE BLOOD COUNT 7.9 10^3/uL (4.0-10.0)
[2019-05-20 06:33] LABS: CALCIUM LEVEL 9.5 MG/DL (8.8-10.2); CREATININE FOR GFR 2.08 MG/DL (0.55-1.30); GLOMERULAR FILTRATION RATE 24.1 (>32); MAGNESIUM LEVEL 2.3 MG/DL (1.8-2.4); PHOSPHORUS LEVEL 3.6 MG/DL (2.5-4.9); POTASSIUM SERUM 4.6 MEQ/L (3.5-5.1)
[2019-05-20] MEDS: MIRALAX *UNIT DOSE* 17GM PACKET PO SCH (09:19)
[2019-05-20] MEDS: ESCITALOPRAM OXALATE 5MG TABLET (LEXAPRO) PO SCH (09:20)
[2019-05-20] MEDS: ASPIRIN 81 MG ENTERIC TAB PO SCH ×2 (09:20→21:55)
[2019-05-20] MEDS: predniSONE 10 MG TAB PO SCH (09:20)
[2019-05-20] MEDS: MECLIZINE 25 MG TABLET PO SCH ×2 (09:20→21:56)
[2019-05-20] MEDS: FEBUXOSTAT 40 MG TABLET (ULORIC) PO SCH (09:20)
[2019-05-20] MEDS: oxyCODONE 15 MG CR TAB PO SCH ×2 (09:23→21:56)
[2019-05-20] MEDS: SPIRONOLACTONE 25 MG TAB PO SCH (09:31)
[2019-05-20] MEDS: **hydrALAZINE** 50 MG TAB PO SCH ×2 (09:31→21:55)
[2019-05-20] MEDS: FUROSEMIDE 40 MG TAB PO SCH (09:31)
--- NOTE | 2019-05-20 11:53 | IPNPDOC ---
Date Seen The patient was seen on 05/20/19. Progress Note SUBJECTIVE: 83-year-old female with past medical history of chronic kidney disease, traumatic cerebral hemorrhage, subsequent seizures, hypertension, was admitted for seizure. She was not taking seizure medication for the past 20 years, started on Depakote during this hospitalization, no further seizure activity since then. Patient has been evaluated by neurology, imaging has been negative for any acute process, no other intervention, outpatient neurology follow-up. Patient reports feeling well today, denies any dizziness, headache, nausea, vomiting, chest pain, abdominal pain, diarrhea or constipation. Patient, however physical therapy will recommend further therapy sessions prior to d ischarge. 05/19/2019 Patient sitting in chair, reports waking up with right foot pain, moderate to severe when weightbearing, unable to work well with physical therapy due to foot pain. Patient has no other complaints at this time, denies short of breath, chest pain, nausea, vomiting, abdominal pain, diarrhea. 05/20/2019 Patient in bed, reports minimal improvement in right foot pain, pain still moderate to severe when weightbearing. She was really by physical therapy who recommend another day of rehabilitation prior to discharge. Patient without any additional quit at this time, denies any short of breath, chest pain, vomiting, abdominal pain, diarrhea. 10 point review of systems negative except for above PHYSICAL EXAMINATION: VITAL SIGNS: Please see below. GENERAL: No distress, frail HEENT: Normocephalic, atraumatic, moist mucous membranes NECK: Supple CARDIOVASCULAR EXAMINATION: S1, S2, no murmurs RESPIRATORY EXAMINATION: Clear to auscultation, no wheezing ABDOMINAL EXAMINATION: Soft, nontender, nondistended, positive bowel sounds EXTREMITIES: Right foot with moderate point tenderness of the plantar fascia. 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 DVT prophylaxis ordered?: Yes ASSESSMENT AND PLAN: 83-year-old female with history of traumatic cerebral hemorrhage and seizure disorder, off medication for over 20 years, admitted for seizure. PROBLEMS: 1. Seizure: History of traumatic cerebral hemorrhage, last seizure over 20 years ago. Continue Depakote, evaluated by neurology, imaging negative for acute process. Continue PT, tentative discharge tomorrow. 2. Chronic kidney disease: Creatinine close to baseline, will monitor. 3. Hypertension: Continue home meds. 4. Gout: Foot pain, questionable gout flare, status post colchicine, continue prednisone 30 mg daily. Continue Uloric DVT prophylaxis: Heparin subcutaneous GI prophylaxis: Not needed VS, I&O, 24H, Fishbone Vital Signs/I&O Vital Signs Date Time Temp Pulse Resp B/P (MAP) Pulse Ox O2 Delivery O2 Flow Rate FiO2 05/20/19 10:00 97.7 58 18 131/41 (71) 96 Room Air I&O- Last 24 Hours up to 6 AM 05/20/19 05:59 Intake Total 1008 ml Output Total 1100 ml Balance -92 ml Laboratory Data 24H LABS Laboratory Tests 2 05/20/19 05:54: Nucleated Red Blood Cells % (auto) 0.0, Anion Gap 7L, Glomerular Filtration Rate 24.1L, Calcium Level 9.5, Phosphorus Level 3.6, Magnesium Level 2.3 CBC/BMP Laboratory Tests 05/20/19 05:54 JARROD CAMACHO MD May 20, 2019 11:53
[2019-05-20] MEDS: PROPRANOLOL 80 MG LA CAP PO SCH (21:54)
[2019-05-20] MEDS: CALCITRIOL 0.25 MCG CAP (S0169) PO SCH (21:55)
[2019-05-20] MEDS: SIMVASTATIN 40 MG TAB PO SCH (21:55)
[2019-05-20] MEDS: DOCUSATE SODIUM 100 MG CAP PO SCH (21:56)
[2019-05-20] MEDS: DIVALPROEX 500MG *ER* TAB PO SCH (21:56)
[2019-05-21 02:00] VITALS: BP 133/50
[2019-05-21 06:00] VITALS: BP 138/46
[2019-05-21 06:09] LABS: HEMATOCRIT 30.6 % (36.0-47.0); HEMOGLOBIN 9.7 g/dl (12.0-15.5); MEAN CORPUSCULAR HEMOGLOBIN 30.7 pg (27.0-33.0); MEAN CORPUSCULAR HGB CONC 31.7 g/dl (32.0-36.5); MEAN CORPUSCULAR VOLUME 96.8 fl (80.0-96.0); PLATELET COUNT, AUTOMATED 212 10^3/uL (150-450); RED BLOOD COUNT 3.16 10^6/uL (4.00-5.40); WHITE BLOOD COUNT 10.3 10^3/uL (4.0-10.0)
[2019-05-21] MEDS: LEVOTHYROXINE 25MCG TABLET (0.025MG) PO SCH (06:13)
[2019-05-21] MEDS: HEPARIN SOD (PORCINE) 5000 UNITS/ML VIAL SQ SCH ×2 (06:14→14:10)
[2019-05-21] MEDS: SLF 3 ML SYR IV SCH ×2 (06:14→14:00)
[2019-05-21 06:30] LABS: CALCIUM LEVEL 9.1 MG/DL (8.8-10.2); CREATININE FOR GFR 2.06 MG/DL (0.55-1.30); GLOMERULAR FILTRATION RATE 24.4 (>32); POTASSIUM SERUM 4.1 MEQ/L (3.5-5.1)
[2019-05-21] MEDS: ESCITALOPRAM OXALATE 5MG TABLET (LEXAPRO) PO SCH (09:48)
[2019-05-21] MEDS: FEBUXOSTAT 40 MG TABLET (ULORIC) PO SCH (09:48)
[2019-05-21] MEDS: MIRALAX *UNIT DOSE* 17GM PACKET PO SCH (09:48)
[2019-05-21] MEDS: ASPIRIN 81 MG ENTERIC TAB PO SCH (09:48)
[2019-05-21] MEDS: MECLIZINE 25 MG TABLET PO SCH (09:48)
[2019-05-21] MEDS: predniSONE 10 MG TAB PO SCH (09:48)
[2019-05-21 09:50] VITALS: BP 168/66
[2019-05-21] MEDS: FUROSEMIDE 40 MG TAB PO SCH (09:50)
[2019-05-21] MEDS: SPIRONOLACTONE 25 MG TAB PO SCH (09:50)
[2019-05-21] MEDS: **hydrALAZINE** 50 MG TAB PO SCH (09:50)
[2019-05-21] MEDS: oxyCODONE 15 MG CR TAB PO SCH (09:51)
[2019-05-21 10:00] VITALS: BP 135/65
[2019-05-21] MEDS ORDERED: DEPA500T2 PO ×2 (11:56→12:09)
--- NOTE | 2019-05-21 12:04 | DS.PDOC ---
Discharge Summary General Date of Admission May 17, 2019 at 12:16 Date of Discharge 05/21/2019 Attending Physician: JARROD CAMACHO MD Discharge Summary PROCEDURES PERFORMED DURING STAY: None. ADMITTING DIAGNOSES: 1. Seizure. DISCHARGE DIAGNOSES: 1. Seizure. COMPLICATIONS/CHIEF COMPLAINT: Seizure. HISTORY OF PRESENT ILLNESS: 83-year-old female with past medical history of chr onic kidney disease, gout, traumatic cerebral hemorrhage with subsequent seizures, last one over 20 years ago, was admitted for seizure. She has not had a seizure since admission, tolerating her Depakote without any adverse effects. She was relatively by physical therapy who recommended home with home services. During hospitalization she developed acute right foot pain, consistent with gout flare, treated with colchicine and prednisone with near complete resolution of foot pain. She did well with physical therapy today and stable for discharge home.. HOSPITAL COURSE: As above. DISCHARGE MEDICATIONS: Please see below. ALLERGIES: Please see below. PHYSICAL EXAMINATION: VITAL SIGNS: Please see below. GENERAL: No distress, frail HEENT: Normocephalic, atraumatic, moist mucous membranes NECK: Supple CARDIOVASCULAR EXAMINATION: S1, S2, no murmurs RESPIRATORY EXAMINATION: Clear to auscultation, no wheezing ABDOMINAL EXAMINATION: Soft, nontender, nondistended, positive bowel sounds EXTREMITIES: Right foot pain resolved, has significant neuropathy in the bilateral lower extremities at baseline SKIN: No rash NEUROLOGICAL EXAMINATION: Alert and oriented 3, no focal deficits PSYCHIATRIC EXAMINATION: Calm and cooperative LABORATORY DATA: Please see below. PROGNOSIS: Fair ACTIVITY: As tolerated. DIET: Renal DISCHARGE PLAN: Patient is to follow with neurologist and PCP in 1-2 weeks DISPOSITION: Home with services. DISCHARGE INSTRUCTIONS: 1. As above. DISCHARGE CONDITION: Stable. TIME SPENT ON DISCHARGE: Greater than 25 minutes. Vital Signs/I&Os Vital Signs Date Time Temp Pulse Resp B/P (MAP) Pulse Ox O2 Delivery O2 Flow Rate FiO2 05/21/19 10:00 98.0 56 18 135/65 (88) 96 Room Air I&O- Last 24 Hours up to 6 AM 05/21/19 05:59 Intake Total 1110 ml Output Total 900 ml Balance 210 ml Laboratory Data Labs 24H Laboratory Tests 2 05/21/19 05:54: Nucleated Red Blood Cells % (auto) 0.0, Anion Gap 6L, Glomerular Filtration Rate 24.4L, Calcium Level 9.1 CBC/BMP Laboratory Tests 05/21/19 05:54 Discharge Medications Scheduled Ascorbic Acid (Vitamin C) 500 Mg Tablet, 1,000 MG PO DAILY, (Reported) Aspirin (Aspir 81) 81 Mg Tablet.dr, 81 MG PO BID, (Reported) Calcitriol (Calcitriol) 0.25 Mcg Capsule, 0.25 MCG PO QHS, (Reported) Cranberry Fruit Extract (Cranberry) 500 Mg Capsule, 1,000 MG PO DAILY, (Reported) Cyclosporine (Restasis) 0.05% Droperette, 1 DROP OU TID, (Reported) Docusate Sodium (Colace) 100 Mg Capsule, 300 MG PO QHS, (Reported) Escitalopram Oxalate (Lexapro) 5 Mg Tablet, 5 MG PO DAILY, (Reported) Febuxostat (Uloric) 40 Mg Tablet, 40 MG PO DAILY, (Reported) Fish Oil/Dha/Epa (Fish Oil 1,200 mg Fish Oil) 1 Each Capsule, 1,200 MG PO BID, (Reported) Furosemide (Furosemide) 40 Mg Tablet, 40 MG PO DAILY, (Reported) Hydralazine HCl (Hydralazine HCl) 50 Mg Tablet, 50 MG PO BID, (Reported) Levothyroxine Sodium (Synthroid) 25 Mcg Tablet, 25 MCG PO DAILY, (Reported) Meclizine HCl (Meclizine HCl) 25 Mg Tablet, 25 MG PO BID, (Reported) Oxycodone HCl (Oxycontin) 15 Mg Tab.er.12h, 15 MG PO BID, (Reported) Propranolol HCl (Propranolol HCl ER) 80 Mg Cap.sa.24h, 80 MG PO QHS, (Reported) Simvastatin (Simvastatin) 40 Mg Tablet, 40 MG PO QHS, (Reported) Spironolactone (Spironolactone) 25 Mg Tablet, 25 MG PO DAILY, (Reported) Vitamin E (Vitamin E) 400 Unit Capsule, 400 UNIT PO DAILY, (Reported) Scheduled PRN Acetaminophen (Acetaminophen) 500 Mg Tablet, 500 MG PO Q6H PRN for PAIN, (Reported) Allergies Coded Allergies: amlodipine (Verified Allergy, Unknown, UNKNOWN REACTION, 05/16/19) codeine (Verified Adverse Reaction, Unknown, NAUSEA, 05/16/19) meperidine (Verified Adverse Reaction, Unknown, HALLUCINATIONS, 05/16/19) propoxyphene (Verified Adverse Reaction, Unknown, HALLUCINATIONS, 05/16/19) JARROD CAMACHO MD May 21, 2019 12:04
== END 2019-05-21 14:32 | disposition home or self-care (01) | DRG 92 ==
LOC: M ED 13:32 → M ED INP 13:33 → UNDOADMOB 15:45 → M PCU 22:23 → OBSVTOIN 05-17 12:16 → M MSPAV 05-19 14:42
PROVIDERS: ADMIT Student in an Organized Health Care Education/Training Program; ATTEND Internal Medicine
DX: S06.5X0S Traumatic subdural hemorrhage without loss of consciousness, sequela (principal); N18.4 Chronic kidney disease, stage 4 (severe); R56.9 Unspecified convulsions; I12.9 Hypertensive chronic kidney disease with stage 1 through stage 4 chronic kidney disease, or unspecified chronic kidney disease; M10.9 Gout, unspecified; Z96.651 Presence of right artificial knee joint; Z96.652 Presence of left artificial knee joint; E03.9 Hypothyroidism, unspecified; Z79.82 Long term (current) use of aspirin; Z79.899 Other long term (current) drug therapy; Z88.5 Allergy status to narcotic agent; Z88.8 Allergy status to other drugs, medicaments and biological substances; E78.5 Hyperlipidemia, unspecified; W18.30XS Fall on same level, unspecified, sequela; Y92.9 Unspecified place or not applicable

== ENCOUNTER → 2019-06-02 | Outpatient (REF) | payer MEDICARE ==
[~2019-06-02] MED LIST changes: +ACET500T15 PO; +CALC1CAP31 PO; +COLA100C5 PO; +CVS500CA5 PO; +DEPA500T2 PO; +FEBU40TA4 PO; +HYDR-3911 PO; +KP F1200 PO; +LEXA5TAB13 PO; +OXYC15TA66 PO; +PROP80CA PO; +SIMV40TA2 PO; +VITA-158 PO; +VITA-245 PO
[2019-06-02 17:01] LABS: BASO # 0.1 10^3/uL (0.0-0.2); BASO % 0.4 % (0.0-1.0); EOS # 0.2 10^3/uL (0.0-0.5); EOS % 1.3 % (0.0-3.0); HEMATOCRIT 34.4 % (36.0-47.0); LYMPH # 1.5 10^3/uL (1.5-5.0); LYMPH % 11.3 % (24.0-44.0); MEAN CORPUSCULAR VOLUME 96.9 fl (80.0-96.0); MONO # 1.1 10^3/uL (0.0-0.8); MONO % 8.3 % (0.0-5.0); NEUTROPHILS # 10.5 10^3/uL (1.5-8.5); NEUTROPHILS % 77.6 % (36.0-66.0); PLATELET COUNT, AUTOMATED 230 10^3/uL (150-450); RED BLOOD COUNT 3.55 10^6/uL (4.00-5.40); WHITE BLOOD COUNT 13.5 10^3/uL (4.0-10.0)
[2019-06-02 17:14] LABS: ALBUMIN 3.2 GM/DL (3.2-5.2); BILIRUBIN,TOTAL 0.4 MG/DL (0.2-1.0); CREATININE FOR GFR 3.08 MG/DL (0.55-1.30); GLOMERULAR FILTRATION RATE 15.3 (>32); POTASSIUM SERUM 4.5 MEQ/L (3.5-5.1); TOTAL PROTEIN 6.4 GM/DL (6.4-8.2); VALPROIC ACID (DEPAKOTE) 72.1 UG/ML (50.0-100.0)
== END ==
LOC: M LAB REF 15:46
PROVIDERS: ATTEND Psychiatry & Neurology Neurology
DX: R56.9 Unspecified convulsions (principal); I50.32 Chronic diastolic (congestive) heart failure; N18.4 Chronic kidney disease, stage 4 (severe); E03.9 Hypothyroidism, unspecified

== ENCOUNTER → 2020-01-13 | Outpatient (REF) | payer MEDICARE ==
[~2020-01-13] MED LIST changes: -MECL-68 PO; +MECL1TAB31 PO; -SIMV40TA2 PO; +SIMV40TA20 PO
== END ==
LOC: M LAB REF 16:06
PROVIDERS: ATTEND Internal Medicine
DX: G40.409 Other generalized epilepsy and epileptic syndromes, not intractable, without status epilepticus (principal)

== ENCOUNTER 2020-03-12 09:39 | Emergency (ER) | payer MEDICARE ==
[~2020-03-12] VITALS: Ht 157.5 cm; Wt 77.0 kg
[~2020-03-12 09:39] MED LIST changes: +ASPI-546 PO; -ASPI1TAB15 PO; -ASPI81TA85 PO; +ASPI81TA86 PO; +CALC-212 PO; -CALC600T7 PO
[2020-03-12] MEDS ORDERED: DIVALPROEX 500 MG TAB PO ONE (10:30)
[2020-03-12] MEDS ORDERED: ACETAMINOPHEN 325 MG TAB PO ONE (11:00)
[2020-03-12 11:14] LABS: BASO # 0.1 10^3/uL (0.0-0.2); BASO % 0.7 % (0.0-1.0); EOS # 0.2 10^3/uL (0.0-0.5); EOS % 2.1 % (0.0-3.0); HEMATOCRIT 33.8 % (36.0-47.0); HEMOGLOBIN 10.9 g/dl (12.0-15.5); LYMPH # 1.1 10^3/uL (1.5-5.0); LYMPH % 11.4 % (24.0-44.0); MEAN CORPUSCULAR HEMOGLOBIN 31.5 pg (27.0-33.0); MEAN CORPUSCULAR HGB CONC 32.2 g/dl (32.0-36.5); MEAN CORPUSCULAR VOLUME 97.7 fl (80.0-96.0); MONO # 0.9 10^3/uL (0.0-0.8); MONO % 8.7 % (0.0-5.0); NEUTROPHILS # 7.7 10^3/uL (1.5-8.5); NEUTROPHILS % 76.7 % (36.0-66.0); PLATELET COUNT, AUTOMATED 232 10^3/uL (150-450); RED BLOOD COUNT 3.46 10^6/uL (4.00-5.40)
[2020-03-12 11:34] LABS: CALCIUM LEVEL 7.4 MG/DL (8.8-10.2); CREATININE FOR GFR 2.02 MG/DL (0.55-1.30); GLOMERULAR FILTRATION RATE 24.9 (>32); POTASSIUM SERUM 3.4 MEQ/L (3.5-5.1)
[2020-03-12] MEDS ORDERED: DEPA250T32 PO (12:03)
[2020-03-12 12:40] VITALS: BP 122/58
== END 2020-03-12 12:40 | disposition home or self-care (01) ==
LOC: M ED 09:39 → EDBD 09:39 → M ED 12:40
DX: R56.9 Unspecified convulsions (principal); Z87.820 Personal history of traumatic brain injury; Z79.82 Long term (current) use of aspirin; Z79.899 Other long term (current) drug therapy; Z88.5 Allergy status to narcotic agent; Z88.8 Allergy status to other drugs, medicaments and biological substances

== ENCOUNTER → 2020-03-25 | Outpatient (CLI) | payer MEDICARE ==
[~2020-03-25] MED LIST changes: +DEPA250T32 PO
[2020-03-25 15:06] LABS: BASO % 0.4 % (0.0-1.0); EOS # 0.2 10^3/uL (0.0-0.5); EOS % 1.6 % (0.0-3.0); HEMATOCRIT 36.5 % (36.0-47.0); HEMOGLOBIN 11.3 g/dl (12.0-15.5); LYMPH # 1.7 10^3/uL (1.5-5.0); LYMPH % 17.6 % (24.0-44.0); MEAN CORPUSCULAR VOLUME 100.3 fl (80.0-96.0); MONO # 1.2 10^3/uL (0.0-0.8); MONO % 12.7 % (0.0-5.0); NEUTROPHILS # 6.4 10^3/uL (1.5-8.5); NEUTROPHILS % 67.1 % (36.0-66.0); PLATELET COUNT, AUTOMATED 248 10^3/uL (150-450); RED BLOOD COUNT 3.64 10^6/uL (4.00-5.40); WHITE BLOOD COUNT 9.5 10^3/uL (4.0-10.0)
[2020-03-25 15:08] LABS: ALBUMIN 3.6 GM/DL (3.2-5.2); BILIRUBIN,TOTAL 0.6 MG/DL (0.2-1.0); CALCIUM LEVEL 9.1 MG/DL (8.8-10.2); CREATININE FOR GFR 3.07 MG/DL (0.55-1.30); GLOMERULAR FILTRATION RATE 15.3 (>32); POTASSIUM SERUM 4.4 MEQ/L (3.5-5.1); TOTAL PROTEIN 6.7 GM/DL (6.4-8.2); VALPROIC ACID (DEPAKOTE) 62.7 UG/ML (50.0-100.0)
== END ==
LOC: M WUC 12:49
PROVIDERS: ATTEND Psychiatry & Neurology Neurology
DX: R56.9 Unspecified convulsions (principal); Z51.81 Encounter for therapeutic drug level monitoring

== ENCOUNTER → 2020-06-28 | Outpatient (REF) | payer MEDICARE ==
[2020-06-28 18:29] LABS: FREE T4 0.93 NG/DL (0.76-1.46); THYROID STIMULATING HORMONE 4.48 uIU/ML (0.358-3.740)
== END ==
LOC: M LAB REF 17:09
PROVIDERS: ATTEND Internal Medicine Nephrology
DX: E03.9 Hypothyroidism, unspecified (principal)

== ENCOUNTER → 2020-07-14 | Outpatient (REF) | payer MEDICARE ==
[2020-07-14 17:51] LABS: URIC ACID 4.6 MG/DL (2.6-6.0); VALPROIC ACID (DEPAKOTE) 65.4 UG/ML (50.0-100.0)
== END ==
LOC: M LAB REF 16:34
PROVIDERS: ATTEND Internal Medicine
DX: M10.372 Gout due to renal impairment, left ankle and foot (principal); I50.32 Chronic diastolic (congestive) heart failure

== ENCOUNTER → 2020-12-02 | Outpatient (CLI) | payer MEDICARE ==
--- NOTE | 2020-12-02 14:17 | REP ---
INDICATION: ATTENTION HUMERUS. COMPARISON: None. TECHNIQUE: Three views of the right shoulder were performed. FINDINGS: The acromioclavicular and glenohumeral relationships are within normal limits. There is no acute fracture or destructive osseous lesion. IMPRESSION: Within normal limits for age <Electronically signed by Lalo Nye > 12/02/20 1411
== END ==
LOC: M WUC 13:47
PROVIDERS: ATTEND Physician Assistant Medical
DX: M25.511 Pain in right shoulder (principal)

== ENCOUNTER → 2021-01-17 | Outpatient (REF) | payer MEDICARE | LOC: M LAB REF 16:32 | PROVIDERS: ATTEND Internal Medicine | DX: I50.32 Chronic diastolic (congestive) heart failure (principal) ==

== ENCOUNTER → 2021-05-17 | Outpatient (REF) | payer MEDICARE ==
[~2021-05-17] MED LIST changes: +MORP1SOL5 PO; -MORP20SO3 PO
== END ==
LOC: M LAB REF 17:34
PROVIDERS: ATTEND Internal Medicine Nephrology
DX: N39.0 Urinary tract infection, site not specified (principal)

== ENCOUNTER → 2021-07-01 | Outpatient (REF) | payer MEDICARE ==
[~2021-07-01] MED LIST changes: -LEVO500T3 PO; +LEVO500T4 PO
== END ==
LOC: M LAB REF 16:20
PROVIDERS: ATTEND Internal Medicine
DX: I50.32 Chronic diastolic (congestive) heart failure (principal)

== ENCOUNTER 2021-10-19 15:23 | Inpatient (IN) | payer MEDICARE ==
[~2021-10-19] VITALS: Ht 157.5 cm; Wt 82.0 kg
[2021-10-19 17:12] LABS: VENOUS BASE EXCESS 1.9 (-2.0-2.0); VENOUS HCO3 27.4 MEQ/L (23.0-27.0); VENOUS PARTIAL PRESSURE CO2 46.3 mmHg (38.0-50.0); VENOUS PARTIAL PRESSURE O2 33.8 mmHg (30.0-50.0); VENOUS STANDARD HCO3 25.4 MEQ/L; VENOUS TOTAL CO2 28.8 MEQ/L (24.0-28.0)
[2021-10-19 17:18] LABS: BASO % 0.5 % (0.0-1.0); EOS # 0.1 10^3/uL (0.0-0.5); EOS % 1.3 % (0.0-3.0); HEMATOCRIT 40.8 % (36.0-47.0); HEMOGLOBIN 12.9 g/dl (12.0-15.5); LYMPH # 0.9 10^3/uL (1.5-5.0); LYMPH % 10.8 % (24.0-44.0); MEAN CORPUSCULAR HEMOGLOBIN 31.9 pg (27.0-33.0); MEAN CORPUSCULAR HGB CONC 31.6 g/dl (32.0-36.5); MEAN CORPUSCULAR VOLUME 100.7 fl (80.0-96.0); MONO # 1.2 10^3/uL (0.0-0.8); MONO % 14.7 % (2.0-8.0); NEUTROPHILS # 6.1 10^3/uL (1.5-8.5); NEUTROPHILS % 71.8 % (36.0-66.0); PLATELET COUNT, AUTOMATED 205 10^3/uL (150-450); RED BLOOD COUNT 4.05 10^6/uL (4.00-5.40); WHITE BLOOD COUNT 8.4 10^3/uL (4.0-10.0)
[2021-10-19] MEDS: NS 1,000 ML IV SCH (17:46)
[2021-10-19 17:53] LABS: ALBUMIN 3.7 GM/DL (3.2-5.2); ALT/SGPT 14 U/L (12-78); BILIRUBIN,DIRECT 0.1 MG/DL (0.0-0.2); BILIRUBIN,TOTAL 0.4 MG/DL (0.2-1.0); BLOOD UREA NITROGEN 51 MG/DL (7-18); CALCIUM LEVEL 9.4 MG/DL (8.8-10.2); CARBON DIOXIDE LEVEL 32 MEQ/L (21-32); CHLORIDE LEVEL 105 MEQ/L (98-107); CREATININE FOR GFR 2.06 MG/DL (0.55-1.30); GLOMERULAR FILTRATION RATE 24.2 (>32); GLUCOSE, FASTING 98 MG/DL (70-100); POTASSIUM SERUM 4.1 MEQ/L (3.5-5.1); SODIUM LEVEL 142 MEQ/L (136-145); TOTAL PROTEIN 6.7 GM/DL (6.4-8.2)
[2021-10-19 17:56] LABS: OSMOLALITY SERUM 305 MOSM/KG (280-301)
[2021-10-19] MEDS ORDERED: **hydrALAZINE HCL** 25 MG TAB PO ONE (19:30)
[2021-10-19] MEDS ORDERED: hydrALAZINE 20MG/ML 1ML VIAL (J0360 PER 20MG) IV STA (20:12)
[2021-10-19] MEDS ORDERED: ASPI81CH33 PO (20:22)
[2021-10-19] MEDS ORDERED: MM S100C PO (20:22)
[2021-10-19] MEDS ORDERED: HYDR-3910 PO (20:23)
[2021-10-19] MEDS ORDERED: HOME MED LIST COMPLETE! XX SCH (20:25)
[2021-10-19] MEDS: ESCITALOPRAM OXALATE 5MG TABLET (LEXAPRO) PO SCH (21:00)
[2021-10-19] MEDS: DIVALPROEX 250 MG TAB PO SCH (21:00)
[2021-10-19] MEDS ORDERED: **hydrALAZINE HCL** 25 MG TAB PO SCH (21:00)
[2021-10-19] MEDS ORDERED: ACETAMINOPHEN TAB 650MG DOSE (2X325MG) PO PRN (22:35)
[2021-10-19] MEDS ORDERED: hydrALAZINE 20MG/ML 1ML VIAL (J0360 PER 20MG) IV ONE (22:35)
[2021-10-19] MEDS ORDERED: cefTRIAXone SOD 1 GM in D5W MINI-BAG PLUS 50 ML IV SCH (23:00)
[2021-10-19 23:24] VITALS: BP_SYST 119; BP_SYST 56; BP_DIAS 56
[2021-10-19] MEDS: ASPIRIN 81 MG CHEW TABLET PO SCH (23:40)
[2021-10-19] MEDS: MECLIZINE 25 MG TABLET PO SCH (23:40)
[2021-10-19] MEDS: SIMVASTATIN 40 MG TAB PO SCH (23:41)
[2021-10-19] MEDS: DOCUSATE SODIUM 100MG CAPSULE PO SCH (23:41)
[2021-10-19] MEDS: oxyCODONE 15 MG CR TAB PO SCH (23:41)
[2021-10-20 04:00] VITALS: BP 139/61
[2021-10-20] MEDS: LEVOTHYROXINE 25MCG TABLET (0.025MG) PO SCH (05:07)
[2021-10-20] MEDS: HEPARIN SOD (PORCINE) 5000UNITS/ML 1ML VIAL/SYRINGE SC SCH ×3 (05:07→20:37)
[2021-10-20] MEDS: NS 1,000 ML IV SCH ×2 (05:07→12:55)
[2021-10-20 06:19] LABS: HEMATOCRIT 37.7 % (36.0-47.0); HEMOGLOBIN 11.7 g/dl (12.0-15.5); MEAN CORPUSCULAR HEMOGLOBIN 31.2 pg (27.0-33.0); MEAN CORPUSCULAR VOLUME 100.5 fl (80.0-96.0); PLATELET COUNT, AUTOMATED 194 10^3/uL (150-450); RED BLOOD COUNT 3.75 10^6/uL (4.00-5.40); WHITE BLOOD COUNT 8.3 10^3/uL (4.0-10.0)
[2021-10-20 06:43] LABS: CALCIUM LEVEL 8.9 MG/DL (8.8-10.2); CREATININE FOR GFR 1.75 MG/DL (0.55-1.30); GLOMERULAR FILTRATION RATE 29.2 (>32); MAGNESIUM LEVEL 2.1 MG/DL (1.8-2.4); POTASSIUM SERUM 4.1 MEQ/L (3.5-5.1)
[2021-10-20 08:15] VITALS: BP 133/61
[2021-10-20] MEDS: ASPIRIN 81 MG CHEW TABLET PO SCH ×2 (09:46→20:33)
[2021-10-20] MEDS: FUROSEMIDE 20 MG TAB PO SCH (09:47)
[2021-10-20] MEDS: oxyCODONE 15 MG CR TAB PO SCH ×2 (09:48→20:32)
[2021-10-20] MEDS: SPIRONOLACTONE 25 MG TAB PO SCH (09:48)
[2021-10-20] MEDS: DIVALPROEX 250 MG TAB PO SCH ×2 (09:49→20:33)
[2021-10-20] MEDS: MECLIZINE 25 MG TABLET PO SCH ×2 (09:49→20:37)
[2021-10-20] MEDS: **hydrALAZINE HCL** 25 MG TAB PO SCH ×2 (09:49→20:34)
[2021-10-20] MEDS: FEBUXOSTAT 40 MG TABLET (ULORIC) PO SCH (09:50)
[2021-10-20] MEDS: CHLORASEPTIC SPRAY MT PRN ×2 (11:02→20:32)
[2021-10-20 14:14] LABS: VALPROIC ACID (DEPAKOTE) 28.5 UG/ML (50.0-100.0)
[2021-10-20 16:00] VITALS: BP 135/63
[2021-10-20 20:00] VITALS: BP 137/63
[2021-10-20] MEDS: DOCUSATE SODIUM 100MG CAPSULE PO SCH (20:32)
[2021-10-20] MEDS: SIMVASTATIN 40 MG TAB PO SCH (20:33)
[2021-10-20] MEDS: CEFDINIR 300 MG CAP (OMNICEF) PO SCH (20:33)
[2021-10-20] MEDS: ESCITALOPRAM OXALATE 5MG TABLET (LEXAPRO) PO SCH (20:33)
[2021-10-21] VITALS: BP 112/52
[2021-10-21 04:00] VITALS: BP 123/60
[2021-10-21 05:38] LABS: HEMATOCRIT 35.5 % (36.0-47.0); HEMOGLOBIN 11.2 g/dl (12.0-15.5); MEAN CORPUSCULAR HEMOGLOBIN 32.1 pg (27.0-33.0); MEAN CORPUSCULAR HGB CONC 31.5 g/dl (32.0-36.5); MEAN CORPUSCULAR VOLUME 101.7 fl (80.0-96.0); PLATELET COUNT, AUTOMATED 192 10^3/uL (150-450); RED BLOOD COUNT 3.49 10^6/uL (4.00-5.40); WHITE BLOOD COUNT 8.1 10^3/uL (4.0-10.0)
[2021-10-21 06:01] LABS: CALCIUM LEVEL 8.7 MG/DL (8.8-10.2); CREATININE FOR GFR 1.95 MG/DL (0.55-1.30); GLOMERULAR FILTRATION RATE 25.8 (>32); MAGNESIUM LEVEL 2.1 MG/DL (1.8-2.4)
[2021-10-21] MEDS: LEVOTHYROXINE 25MCG TABLET (0.025MG) PO SCH (06:31)
[2021-10-21] MEDS: HEPARIN SOD (PORCINE) 5000UNITS/ML 1ML VIAL/SYRINGE SC SCH ×3 (06:31→21:25)
[2021-10-21] MEDS: CHLORASEPTIC SPRAY MT PRN ×3 (06:31→20:10)
[2021-10-21 08:00] VITALS: BP 136/60
[2021-10-21] MEDS: **hydrALAZINE HCL** 25 MG TAB PO SCH ×2 (09:03→20:08)
[2021-10-21] MEDS: ASPIRIN 81 MG CHEW TABLET PO SCH ×2 (09:03→20:08)
[2021-10-21] MEDS: FUROSEMIDE 20 MG TAB PO SCH (09:04)
[2021-10-21] MEDS: oxyCODONE 15 MG CR TAB PO SCH ×2 (09:05→20:08)
[2021-10-21] MEDS: MECLIZINE 25 MG TABLET PO SCH ×2 (09:05→20:09)
[2021-10-21] MEDS: FEBUXOSTAT 40 MG TABLET (ULORIC) PO SCH (09:05)
[2021-10-21] MEDS: SPIRONOLACTONE 25 MG TAB PO SCH (09:06)
[2021-10-21] MEDS: DIVALPROEX 250 MG TAB PO SCH ×2 (09:06→20:09)
[2021-10-21 12:00] VITALS: BP 124/51
[2021-10-21 19:40] VITALS: BP 137/62
[2021-10-21] MEDS: SIMVASTATIN 40 MG TAB PO SCH (20:05)
[2021-10-21] MEDS: DOCUSATE SODIUM 100MG CAPSULE PO SCH (20:09)
[2021-10-21] MEDS: CEFDINIR 300 MG CAP (OMNICEF) PO SCH (20:09)
[2021-10-21] MEDS: ESCITALOPRAM OXALATE 5MG TABLET (LEXAPRO) PO SCH (20:09)
[2021-10-22] MEDS: LEVOTHYROXINE 25MCG TABLET (0.025MG) PO SCH (05:21)
[2021-10-22] MEDS: HEPARIN SOD (PORCINE) 5000UNITS/ML 1ML VIAL/SYRINGE SC SCH ×3 (05:21→21:19)
[2021-10-22 05:50] VITALS: BP 144/64
[2021-10-22 07:16] LABS: HEMATOCRIT 37.4 % (36.0-47.0); HEMOGLOBIN 11.8 g/dl (12.0-15.5); MEAN CORPUSCULAR HEMOGLOBIN 31.3 pg (27.0-33.0); MEAN CORPUSCULAR HGB CONC 31.6 g/dl (32.0-36.5); MEAN CORPUSCULAR VOLUME 99.2 fl (80.0-96.0); PLATELET COUNT, AUTOMATED 189 10^3/uL (150-450); RED BLOOD COUNT 3.77 10^6/uL (4.00-5.40); WHITE BLOOD COUNT 8.4 10^3/uL (4.0-10.0)
[2021-10-22 08:06] LABS: CALCIUM LEVEL 8.6 MG/DL (8.8-10.2); CREATININE FOR GFR 1.88 MG/DL (0.55-1.30); GLOMERULAR FILTRATION RATE 26.9 (>32); MAGNESIUM LEVEL 2.1 MG/DL (1.8-2.4); POTASSIUM SERUM 3.8 MEQ/L (3.5-5.1)
[2021-10-22] MEDS: MECLIZINE 25 MG TABLET PO SCH ×2 (08:24→21:18)
[2021-10-22] MEDS: ASPIRIN 81 MG CHEW TABLET PO SCH ×2 (08:24→21:18)
[2021-10-22] MEDS: FEBUXOSTAT 40 MG TABLET (ULORIC) PO SCH (08:25)
[2021-10-22] MEDS: DIVALPROEX 250 MG TAB PO SCH ×2 (08:25→21:18)
[2021-10-22] MEDS: oxyCODONE 15 MG CR TAB PO SCH ×2 (08:26→21:19)
[2021-10-22] MEDS: SPIRONOLACTONE 25 MG TAB PO SCH (08:27)
[2021-10-22] MEDS: **hydrALAZINE HCL** 25 MG TAB PO SCH ×2 (08:27→21:20)
[2021-10-22] MEDS: FUROSEMIDE 20 MG TAB PO SCH (08:27)
[2021-10-22] MEDS: CEFDINIR 300 MG CAP (OMNICEF) PO SCH (21:18)
[2021-10-22] MEDS: SIMVASTATIN 40 MG TAB PO SCH (21:18)
[2021-10-22] MEDS: DOCUSATE SODIUM 100MG CAPSULE PO SCH (21:18)
[2021-10-22] MEDS: ESCITALOPRAM OXALATE 5MG TABLET (LEXAPRO) PO SCH (21:18)
[2021-10-23] MEDS: LEVOTHYROXINE 25MCG TABLET (0.025MG) PO SCH (05:18)
[2021-10-23] MEDS: HEPARIN SOD (PORCINE) 5000UNITS/ML 1ML VIAL/SYRINGE SC SCH ×3 (05:18→21:29)
[2021-10-23 06:00] VITALS: BP 156/63
[2021-10-23] MEDS: DIVALPROEX 250 MG TAB PO SCH ×2 (09:26→21:27)
[2021-10-23] MEDS: FEBUXOSTAT 40 MG TABLET (ULORIC) PO SCH (09:26)
[2021-10-23] MEDS: ASPIRIN 81 MG CHEW TABLET PO SCH ×2 (09:26→21:26)
[2021-10-23] MEDS: MECLIZINE 25 MG TABLET PO SCH ×2 (09:26→21:27)
[2021-10-23] MEDS: FUROSEMIDE 20 MG TAB PO SCH (09:27)
[2021-10-23] MEDS: SPIRONOLACTONE 25 MG TAB PO SCH (09:27)
[2021-10-23] MEDS: **hydrALAZINE HCL** 25 MG TAB PO SCH ×2 (09:27→21:29)
[2021-10-23] MEDS: oxyCODONE 15 MG CR TAB PO SCH ×2 (09:28→21:28)
[2021-10-23] MEDS: DOCUSATE SODIUM 100MG CAPSULE PO SCH (21:26)
[2021-10-23] MEDS: CEFDINIR 300 MG CAP (OMNICEF) PO SCH (21:26)
[2021-10-23] MEDS: SIMVASTATIN 40 MG TAB PO SCH (21:27)
[2021-10-23] MEDS: ESCITALOPRAM OXALATE 5MG TABLET (LEXAPRO) PO SCH (21:27)
[2021-10-24] MEDS: LEVOTHYROXINE 25MCG TABLET (0.025MG) PO SCH (05:15)
[2021-10-24] MEDS: HEPARIN SOD (PORCINE) 5000UNITS/ML 1ML VIAL/SYRINGE SC SCH ×3 (05:15→21:34)
[2021-10-24 05:43] VITALS: BP 110/54
[2021-10-24 07:58] LABS: BASO # 0.1 10^3/uL (0.0-0.2); BASO % 1.3 % (0.0-1.0); EOS # 0.5 10^3/uL (0.0-0.5); EOS % 5.3 % (0.0-3.0); HEMATOCRIT 41.1 % (36.0-47.0); HEMOGLOBIN 13.1 g/dl (12.0-15.5); LYMPH # 2.5 10^3/uL (1.5-5.0); LYMPH % 27.8 % (24.0-44.0); MEAN CORPUSCULAR HEMOGLOBIN 31.5 pg (27.0-33.0); MEAN CORPUSCULAR HGB CONC 31.9 g/dl (32.0-36.5); MEAN CORPUSCULAR VOLUME 98.8 fl (80.0-96.0); MONO # 0.9 10^3/uL (0.0-0.8); MONO % 10.3 % (2.0-8.0); NEUTROPHILS # 4.7 10^3/uL (1.5-8.5); NEUTROPHILS % 53.3 % (36.0-66.0); PLATELET COUNT, AUTOMATED 242 10^3/uL (150-450); RED BLOOD COUNT 4.16 10^6/uL (4.00-5.40); WHITE BLOOD COUNT 8.8 10^3/uL (4.0-10.0)
[2021-10-24 08:35] LABS: ALBUMIN 3.2 GM/DL (3.2-5.2); BILIRUBIN,TOTAL 0.3 MG/DL (0.2-1.0); CALCIUM LEVEL 9.2 MG/DL (8.8-10.2); CREATININE FOR GFR 2.06 MG/DL (0.55-1.30); GLOMERULAR FILTRATION RATE 24.2 (>32); MAGNESIUM LEVEL 2.2 MG/DL (1.8-2.4); POTASSIUM SERUM 4.9 MEQ/L (3.5-5.1); TOTAL PROTEIN 6.6 GM/DL (6.4-8.2)
[2021-10-24] MEDS: SPIRONOLACTONE 25 MG TAB PO SCH (10:46)
[2021-10-24] MEDS: DIVALPROEX 250 MG TAB PO SCH ×2 (10:46→21:35)
[2021-10-24] MEDS: FEBUXOSTAT 40 MG TABLET (ULORIC) PO SCH (10:46)
[2021-10-24] MEDS: ASPIRIN 81 MG CHEW TABLET PO SCH ×2 (10:46→21:33)
[2021-10-24] MEDS: MECLIZINE 25 MG TABLET PO SCH ×2 (10:47→21:35)
[2021-10-24] MEDS: FUROSEMIDE 20 MG TAB PO SCH (10:47)
[2021-10-24] MEDS ORDERED: BISACODYL 5 MG TAB PO ONE (11:00)
[2021-10-24] MEDS: MIRALAX *UNIT DOSE* 17GM PACKET PO SCH (11:15)
[2021-10-24] MEDS: oxyCODONE 15 MG CR TAB PO SCH ×2 (11:18→21:37)
[2021-10-24] MEDS: **hydrALAZINE HCL** 25 MG TAB PO SCH ×2 (11:30→21:36)
[2021-10-24 14:00] VITALS: BP 111/74
[2021-10-24] MEDS: ACETAMINOPHEN TAB 650MG DOSE (2X325MG) PO PRN (16:47)
[2021-10-24 19:29] VITALS: BP 162/74
[2021-10-24] MEDS: SIMVASTATIN 40 MG TAB PO SCH (21:34)
[2021-10-24] MEDS: ESCITALOPRAM OXALATE 5MG TABLET (LEXAPRO) PO SCH (21:35)
[2021-10-24] MEDS: DOCUSATE SODIUM 100MG CAPSULE PO SCH (21:35)
[2021-10-24] MEDS: CEFDINIR 300 MG CAP (OMNICEF) PO SCH (21:35)
[2021-10-25 05:30] VITALS: BP 145/65
[2021-10-25] MEDS: LEVOTHYROXINE 25MCG TABLET (0.025MG) PO SCH (05:50)
[2021-10-25] MEDS: HEPARIN SOD (PORCINE) 5000UNITS/ML 1ML VIAL/SYRINGE SC SCH ×3 (05:50→20:31)
[2021-10-25] MEDS: MIRALAX *UNIT DOSE* 17GM PACKET PO SCH (09:21)
[2021-10-25] MEDS: DIVALPROEX 250 MG TAB PO SCH ×2 (09:22→20:28)
[2021-10-25] MEDS: SPIRONOLACTONE 25 MG TAB PO SCH (09:22)
[2021-10-25] MEDS: ASPIRIN 81 MG CHEW TABLET PO SCH ×2 (09:22→20:28)
[2021-10-25] MEDS: FEBUXOSTAT 40 MG TABLET (ULORIC) PO SCH (09:22)
[2021-10-25] MEDS: MECLIZINE 25 MG TABLET PO SCH ×2 (09:22→20:28)
[2021-10-25] MEDS: FUROSEMIDE 20 MG TAB PO SCH (09:22)
[2021-10-25] MEDS: **hydrALAZINE HCL** 25 MG TAB PO SCH ×2 (09:25→20:29)
[2021-10-25] MEDS: oxyCODONE 15 MG CR TAB PO SCH ×2 (09:26→20:30)
[2021-10-25] MEDS: ACETAMINOPHEN TAB 650MG DOSE (2X325MG) PO PRN (09:59)
[2021-10-25] MEDS: SIMVASTATIN 40 MG TAB PO SCH (20:28)
[2021-10-25] MEDS: CEFDINIR 300 MG CAP (OMNICEF) PO SCH (20:28)
[2021-10-25] MEDS: ESCITALOPRAM OXALATE 5MG TABLET (LEXAPRO) PO SCH (20:28)
[2021-10-25] MEDS: DOCUSATE SODIUM 100MG CAPSULE PO SCH (20:28)
[2021-10-25 20:29] VITALS: BP 153/91
[2021-10-26 05:06] VITALS: BP 137/78
[2021-10-26] MEDS: HEPARIN SOD (PORCINE) 5000UNITS/ML 1ML VIAL/SYRINGE SC SCH (05:49)
[2021-10-26] MEDS: LEVOTHYROXINE 25MCG TABLET (0.025MG) PO SCH (05:49)
[2021-10-26 06:24] LABS: HEMATOCRIT 37.5 % (36.0-47.0); HEMOGLOBIN 12.1 g/dl (12.0-15.5); MEAN CORPUSCULAR HGB CONC 32.3 g/dl (32.0-36.5); MEAN CORPUSCULAR VOLUME 99.2 fl (80.0-96.0); PLATELET COUNT, AUTOMATED 260 10^3/uL (150-450); RED BLOOD COUNT 3.78 10^6/uL (4.00-5.40); WHITE BLOOD COUNT 9.5 10^3/uL (4.0-10.0)
[2021-10-26 06:42] LABS: ALBUMIN 3.2 GM/DL (3.2-5.2); BILIRUBIN,TOTAL 0.3 MG/DL (0.2-1.0); CALCIUM LEVEL 9.2 MG/DL (8.8-10.2); CREATININE FOR GFR 2.37 MG/DL (0.55-1.30); GLOMERULAR FILTRATION RATE 20.6 (>32); POTASSIUM SERUM 4.4 MEQ/L (3.5-5.1); TOTAL PROTEIN 6.1 GM/DL (6.4-8.2)
[2021-10-26] MEDS ORDERED: MIRA1POW3 PO (10:34)
[2021-10-26] MEDS ORDERED: CEFD300CAP PO (10:39)
[2021-10-26 10:40] VITALS: BP 155/67
[2021-10-26] MEDS: ASPIRIN 81 MG CHEW TABLET PO SCH (10:41)
[2021-10-26] MEDS: MECLIZINE 25 MG TABLET PO SCH (10:41)
[2021-10-26] MEDS: DIVALPROEX 250 MG TAB PO SCH (10:41)
[2021-10-26] MEDS: SPIRONOLACTONE 25 MG TAB PO SCH (10:42)
[2021-10-26] MEDS: **hydrALAZINE HCL** 25 MG TAB PO SCH (10:42)
[2021-10-26] MEDS: FEBUXOSTAT 40 MG TABLET (ULORIC) PO SCH (10:42)
[2021-10-26] MEDS: MIRALAX *UNIT DOSE* 17GM PACKET PO SCH (10:42)
[2021-10-26] MEDS: oxyCODONE 15 MG CR TAB PO SCH (10:46)
== END 2021-10-26 13:52 | DRG 690 ==
LOC: M ED 15:23 → M ED INP 21:45 → ENRESERV 22:50 → M PCU 23:13 → M MSPAV 10-21 21:30
PROVIDERS: ADMIT Family Medicine; ATTEND Internal Medicine
DX: N39.0 Urinary tract infection, site not specified (principal); N18.4 Chronic kidney disease, stage 4 (severe); I16.9 Hypertensive crisis, unspecified; Z66 Do not resuscitate; J06.9 Acute upper respiratory infection, unspecified; E78.5 Hyperlipidemia, unspecified; E03.9 Hypothyroidism, unspecified; F32.A Depression, unspecified; M10.9 Gout, unspecified; M19.90 Unspecified osteoarthritis, unspecified site; I12.9 Hypertensive chronic kidney disease with stage 1 through stage 4 chronic kidney disease, or unspecified chronic kidney disease; G40.909 Epilepsy, unspecified, not intractable, without status epilepticus; M48.00 Spinal stenosis, site unspecified; Z96.653 Presence of artificial knee joint, bilateral; Z90.79 Acquired absence of other genital organ(s); Z98.49 Cataract extraction status, unspecified eye; Z98.1 Arthrodesis status; Z95.0 Presence of cardiac pacemaker; Z20.822 Contact with and (suspected) exposure to COVID-19; Z79.82 Long term (current) use of aspirin; Z79.899 Other long term (current) drug therapy; Z88.5 Allergy status to narcotic agent; Z88.8 Allergy status to other drugs, medicaments and biological substances; B96.4 Proteus (mirabilis) (morganii) as the cause of diseases classified elsewhere; B97.29 Other coronavirus as the cause of diseases classified elsewhere; D64.9 Anemia, unspecified

== ENCOUNTER → 2021-11-04 | Outpatient (REF) | payer MEDICARE ==
[~2021-11-04] MED LIST changes: +ASPI81CH33 PO; +CEFD300CAP PO; +MIRA1POW3 PO; +MM S100C PO
[2021-11-04 09:29] LABS: HEMATOCRIT 39.8 % (36.0-47.0); HEMOGLOBIN 12.9 g/dl (12.0-15.5); MEAN CORPUSCULAR HEMOGLOBIN 31.6 pg (27.0-33.0); MEAN CORPUSCULAR HGB CONC 32.4 g/dl (32.0-36.5); MEAN CORPUSCULAR VOLUME 97.5 fl (80.0-96.0); PLATELET COUNT, AUTOMATED 240 10^3/uL (150-450); RED BLOOD COUNT 4.08 10^6/uL (4.00-5.40); WHITE BLOOD COUNT 16.6 10^3/uL (4.0-10.0)
[2021-11-04 09:57] LABS: CALCIUM LEVEL 8.8 MG/DL (8.8-10.2); CREATININE FOR GFR 2.22 MG/DL (0.55-1.30); GLOMERULAR FILTRATION RATE 22.2 (>32); POTASSIUM SERUM 4.3 MEQ/L (3.5-5.1)
== END ==
LOC: SKLAB3 07:24
PROVIDERS: ATTEND Internal Medicine
DX: R11.2 Nausea with vomiting, unspecified (principal); N39.0 Urinary tract infection, site not specified

== ENCOUNTER → 2021-11-04 | Outpatient (REF) | payer MEDICARE ==
[2021-11-04 12:23] LABS: APPEARANCE, URINE HAZY (CLEAR); BACTERIA, URINE AUTO 3+ (NEGATIVE); BILIRUBIN, URINE AUTO NEGATIVE (NEGATIVE); BLOOD, URINE BLOOD NEGATIVE (NEGATIVE); COLOR, URINE YELLOW (YELLOW); GLUCOSE, URINE (UA) AUTO NEGATIVE (NEGATIVE); KETONE, URINE AUTO NEGATIVE (NEGATIVE); LEUKOCYTE ESTERASE, URINE AUTO 3+ (NEGATIVE); NITRITE, URINE AUTO POSITIVE (NEGATIVE); PROTEIN, URINE AUTO NEGATIVE (NEGATIVE); RBC, URINE AUTO 1 /HPF (0-3); SPECIFIC GRAVITY URINE AUTO 1.013 (1.002-1.035); SQUAMOUS EPITHELIAL CELL UR AU 0 /HPF (0-6); UROBILINOGEN, URINE AUTO 0.2 mg/dL (0.0-2.0); WBC, URINE AUTO 47 /HPF (0-3)
== END ==
LOC: SKLAB3 11:50
PROVIDERS: ATTEND Internal Medicine
DX: N39.0 Urinary tract infection, site not specified (principal)

== ENCOUNTER → 2021-11-10 | Outpatient (REF) | payer MEDICARE ==
[2021-11-10 16:31] LABS: APPEARANCE, URINE CLEAR (CLEAR); BACTERIA, URINE AUTO NEGATIVE (NEGATIVE); BILIRUBIN, URINE AUTO NEGATIVE (NEGATIVE); BLOOD, URINE BLOOD NEGATIVE (NEGATIVE); COLOR, URINE YELLOW (YELLOW); GLUCOSE, URINE (UA) AUTO NEGATIVE (NEGATIVE); KETONE, URINE AUTO NEGATIVE (NEGATIVE); LEUKOCYTE ESTERASE, URINE AUTO NEGATIVE (NEGATIVE); MUCUS, URINE SMALL (NEGATIVE); NITRITE, URINE AUTO NEGATIVE (NEGATIVE); PROTEIN, URINE AUTO NEGATIVE (NEGATIVE); RBC, URINE AUTO 0 /HPF (0-3); SQUAMOUS EPITHELIAL CELL UR AU 2 /HPF (0-6); UROBILINOGEN, URINE AUTO 0.2 mg/dL (0.0-2.0); WBC, URINE AUTO 1 /HPF (0-3)
== END ==
LOC: M LAB REF 16:05
PROVIDERS: ATTEND Internal Medicine
DX: R30.0 Dysuria (principal)

== ENCOUNTER → 2021-12-06 | Outpatient (REF) | payer MEDICARE ==
[2021-12-07 11:44] LABS: APPEARANCE, URINE HAZY (CLEAR); BACTERIA, URINE AUTO NEGATIVE (NEGATIVE); BILIRUBIN, URINE AUTO NEGATIVE (NEGATIVE); BLOOD, URINE BLOOD NEGATIVE (NEGATIVE); COLOR, URINE YELLOW (YELLOW); GLUCOSE, URINE (UA) AUTO NEGATIVE (NEGATIVE); KETONE, URINE AUTO NEGATIVE (NEGATIVE); LEUKOCYTE ESTERASE, URINE AUTO NEGATIVE (NEGATIVE); NITRITE, URINE AUTO NEGATIVE (NEGATIVE); PROTEIN, URINE AUTO NEGATIVE (NEGATIVE); RBC, URINE AUTO 1 /HPF (0-3); SPECIFIC GRAVITY URINE AUTO 1.012 (1.002-1.035); SQUAMOUS EPITHELIAL CELL UR AU 6 /HPF (0-6); UROBILINOGEN, URINE AUTO 0.2 mg/dL (0.0-2.0); WBC, URINE AUTO 8 /HPF (0-3)
== END ==
LOC: M LAB REF 11:25
PROVIDERS: ATTEND Internal Medicine
DX: N39.0 Urinary tract infection, site not specified (principal)

== ENCOUNTER → 2022-01-06 | Outpatient (REF) | payer MEDICARE | LOC: M LAB REF 16:30 | PROVIDERS: ATTEND Internal Medicine | DX: R26.89 Other abnormalities of gait and mobility (principal) ==

== ENCOUNTER 2022-01-20 11:41 | Emergency (ER) | payer MEDICARE ==
[~2022-01-20] VITALS: Ht 160 cm; Wt 80.0 kg
[2022-01-20] MEDS ORDERED: NORCO, ANEXSIA 5/325MG TABLET (HYDROcodone/ACETAMINOPHEN) PO ONE (13:40)
[2022-01-20 15:15] VITALS: BP 143/63
== END 2022-01-20 15:15 | disposition home or self-care (01) ==
LOC: M ED 11:41
DX: S30.0XXA Contusion of lower back and pelvis, initial encounter (principal); M54.2 Cervicalgia; R07.81 Pleurodynia; W19.XXXA Unspecified fall, initial encounter; Y92.099 Unspecified place in other non-institutional residence as the place of occurrence of the external cause; Y93.9 Activity, unspecified; Y99.9 Unspecified external cause status; I50.9 Heart failure, unspecified; I10 Essential (primary) hypertension; E78.5 Hyperlipidemia, unspecified; N18.30 Chronic kidney disease, stage 3 unspecified; E03.9 Hypothyroidism, unspecified; F03.90 Unspecified dementia, unspecified severity, without behavioral disturbance, psychotic disturbance, mood disturbance, and anxiety; M48.061 Spinal stenosis, lumbar region without neurogenic claudication; Z79.82 Long term (current) use of aspirin; Z79.890 Hormone replacement therapy; Z79.899 Other long term (current) drug therapy; Z88.5 Allergy status to narcotic agent; Z88.8 Allergy status to other drugs, medicaments and biological substances

== ENCOUNTER → 2022-05-29 | Outpatient (REF) | payer MEDICARE ==
[~2022-05-29] MED LIST changes: +LEVO1TAB39 PO; -LEVO500T4 PO
== END ==
LOC: M LAB REF 16:15
PROVIDERS: ATTEND Internal Medicine
DX: N39.0 Urinary tract infection, site not specified (principal)

== ENCOUNTER → 2022-06-23 | Outpatient (REF) | payer MEDICARE | LOC: M LAB REF 16:43 | PROVIDERS: ATTEND Internal Medicine | DX: G40.409 Other generalized epilepsy and epileptic syndromes, not intractable, without status epilepticus (principal); G25.0 Essential tremor ==

== ENCOUNTER → 2022-09-29 | Outpatient (REF) | payer MEDICARE ==
[~2022-09-29] MED LIST changes: +SIMV-254 PO; -ZOCO40TA PO
[2022-09-29 17:29] LABS: POTASSIUM SERUM 4.2 MMOL/L (3.5-5.1)
== END ==
LOC: M LAB REF 16:40
PROVIDERS: ATTEND Internal Medicine Nephrology
DX: N18.9 Chronic kidney disease, unspecified (principal)

== ENCOUNTER → 2023-04-06 | Outpatient (REF) | payer MEDICARE ==
[~2023-04-06] MED LIST changes: +MECL-209 PO; -MECL1TAB31 PO
[2023-04-09 11:24] LABS: THYROID STIMULATING HORMONE 3.109 uIU/ML (0.55-4.78); VALPROIC ACID (DEPAKOTE) 79.5 UG/ML (50.0-100.0)
== END ==
LOC: M LAB REF 17:06
PROVIDERS: ATTEND Internal Medicine
DX: E03.9 Hypothyroidism, unspecified (principal); N18.4 Chronic kidney disease, stage 4 (severe); G40.409 Other generalized epilepsy and epileptic syndromes, not intractable, without status epilepticus